=== PATIENT | male | born 1970 | race Caucasian/White ===

== ENCOUNTER 2017-06-21 14:44 | Inpatient (IN) ==
[2017-06-21] MEDS ORDERED: *HR* HYDROmorphone 2 MG TABLET PO PRN ×2 (17:28→20:20)
[2017-06-21] MEDS ORDERED: Naloxone 0.4 MG/ML INJ IVP PRN (17:34)
[2017-06-21] MEDS ORDERED: Acetaminophen 325 MG TABLET PO PRN (17:34)
[2017-06-21] MEDS: *HR* HYDROmorphone 4 MG TABLET PO PRN (17:42)
--- NOTE | 2017-06-21 17:43 | Internal Med History&Physical ---
Date of Encounter: 06/21/17 Time of Encounter: 17:39 Assessment and Plan (1) Sepsis Current visit: Yes Status: Acute Sepsis secondary to right lower extremity cellulitis, possible abscess, possible prepatellar bursitis Unable to determine the extension and depth of infection at the moment Order a CT of the leg stat Orthopedic surgery consult, infectious diseases consult Start daptomycin and cefepime, the patient had an allergic reaction to vancomycin Blood cultures, Dilaudid for pain, IV fluids NPO if surgical procedure as indicated after reviewing the report of the CT scan Omeprazole for GI prophylaxis and subcutaneous tenderness heparin for DVT prophylaxis. The patient will be admitted as inpatient, expected to stay more than 2 midnights. Full code. Time spent on this admission 40 minutes Qualifiers: Sepsis type: sepsis due to unspecified organism Qualified Code(s): A41.9 - Sepsis, unspecified organism (2) Leukocytosis Current visit: Yes Status: Acute Qualifiers: Leukocytosis type: unspecified Qualified Code(s): D72.829 - Elevated white blood cell count, unspecified (3) History of nephrolithiasis Current visit: Yes Status: Acute (4) Accelerated hypertension Current visit: Yes Status: Acute Likely secondary to pain (5) Cellulitis Current visit: No Status: Acute Qualifiers: Site of cellulitis: extremity Site of cellulitis of extremity: lower extremity Laterality: right Qualified Code(s): L03.115 - Cellulitis of right lower limb (6) Tobacco abuse Current visit: Yes Status: Acute Nicotine patch Internal Medicine - H&P: HPI Chief complaint: severe right leg infection Admitted From: Emergency Dept History of present illness: Mr. Braxton is a 47 year old male W(ITH a past medical history of nephrolithiasis, overdoses although he denies it, who was transferred from [place] due to severe right lower extremity pain. Apparently on Monday he fell chasing his dog, scratched his knee and on Monday his leg turned extremely tender, erythematous to the point he was barely able to move it. Today his white blood cell count is 25,000 platelets 447 glucose 110 complaining of 10 out of 10 pain, no imaging has been done in the ER. Patient was given a dose of vancomycin and apparently he had a reaction when he was complaining of burning. He has multiple allergies. According to the nurse he is blood pressure was 199/110 in the ambulance, heart rate was 94. The patient is in excruciating pain of the moment, the right knee appears very tender, erythematous there is possibly underneath, erythema is extending up to the proximal thigh and way below the knee. Has been having chills at home, non- quantified fevers. Past Med Surg Social Fam HX - Past Medical History Medical history: kidney stones, other (Chronic back pain, nephrolithiasis, prior overdoses according to the ER notes from [place]) Psychiatric history: no psych history - Past Surgical History Surgical History: other (Lithotripsies, right upper extremity surgeries) - Social History Smoking Status: Never smoker Smokeless Tobacco Status: Yes (Chews tobacco) Alcohol use: rarely Drug use: none (Denies drug use but has been positive in the past for amphetamines and according to the ER notes from [place] he has a few visits for overdoses) - Family History Mother Hx Family Cardiac Disorders: Yes Hx Family Neuromuscular Disorders: Yes Father Hx Family Cardiac Disorders: Yes - Additional Family History Additional family history: Father with CABG mother with CVA, also heart disease Internal Medicine - H&P: Meds Unable To Obtain [Unable to Obtain] 07/11/16 [History] 3 Allergy/AdvReac Type Severity Reaction Status Date / Time amitriptyline Allergy See Verified 07/11/16 19:11 Comments hydrocodone [From Vicodin] Allergy See Verified 07/11/16 19:11 Comments ibuprofen Allergy See Verified 07/11/16 19:11 Comments meloxicam Allergy Nausea Verified 07/11/16 19:11 tiagabine [From Gabitril] Allergy See Verified 07/11/16 19:11 Comments vancomycin Allergy Rash Verified 06/21/17 15:55 morphine [From Avinza] AdvReac Intermediate See Verified 07/11/16 19:11 Comments All Systems PM: A 10-system review of systems was performed and is negative for pertinent findings except as documented above in the HPI. Review of systems: chills, no cp or sob, other systems out of the 10 reviewed were negative - Constitutional Vitals: Temp Pulse Resp BP Pulse Ox 98.9 F 95 16 145/89 97 06/21/17 17:03 06/21/17 17:03 06/21/17 17:03 06/21/17 17:03 06/21/17 17:03 General appearance: Present: A&O X 3 - Head Head exam: Present: atraumatic, normocephalic - Eye Eye exam: Present: PERRL, conjuntiva pink, sclera anicteric Pupils: Present: PERRL - Neck Neck exam general surgery: Present: supple, trachea midline. Absent: lymphadenopathy - Respiratory Respiratory exam: Present: CTAB. Absent: accessory muscle use, rales, rhonchi, wheezes - Cardiovascular Cardiovascular exam: Present: RRR, +S1, +S2. Absent: diastolic murmur, gallop, rubs, systolic murmur - GI/Abdominal GI/Abdominal exam: Present: normal bowel sounds, soft, no peritoneal signs. Absent: distended, tenderness - Extremities Exam Extremities exam: Present: warm, radial pulses palpable and symmetrical. Absent : calf tenderness, cyanotic, pedal edema - Neurological Exam Neurological exam: Present: CN II-XII intact, oriented X3, no focal deficits. Absent: pronater drift, facial droop, speech deficit - Skin Skin exam: Present: dry, intact Additional comments: Severe swelling and erythema over the right knee with a large area the turned yellowish, possible abscesses underneath, still able to move his extremity/foot no evidence of compartmental syndrome, erythema extending to from the upper thigh down to the ankle
[2017-06-21] MEDS ORDERED: DAPTOmycin 750 MG in 0.9 % Sodium Chloride 100 ML IVPB SCH (18:00)
[2017-06-21] MEDS ORDERED: Cefepime HCl 1,000 MG in D5% in Water (Mini-Bag+) 100 ML IVPB SCH (18:00)
[2017-06-21 19:03] LABS: INR 1.2; Prothrombin Time 13.2 Seconds (9.4-12.1)
--- NOTE | 2017-06-21 19:04 | Orthopedic Consult Note ---
Date of Encounter: 06/21/17 Time of Encounter: 19:01 Assessment and Plan (1) Cellulitis Current Visit: No Status: Acute Extensive subcutaneous abscess and cellulitis concerning for developing necrotizing infection. My recommendation was for emergent operative debridement and removal of devitalized tissue. I did discuss my concerns with the hospitalist who will consult the infectious disease specialists to assist in antibiotic management. The risks discussed included but were not limited to stiffness, bleeding, infection, blood clots, damage to neurovascular structures , tendons, ligaments, and bone. Also discussed was the risk of continued symptoms and possible need for further procedures. I did discuss the anesthesia risks including stroke, heart attack, and . I did discuss with the patient that this may require more than one debridement and he is at risk of loss of life and limb. I explained this to the patient in simple terms and he wished to proceed and consent was obtained. Qualifiers: Site of cellulitis: extremity Site of cellulitis of extremity: lower extremity Laterality: right Qualified Code(s): L03.115 - Cellulitis of right lower limb History of Present Illness HPI: Mr. Braxton is a 47 year old male who was directly admitted to the hospitalist service from [place] emergency department this evening. The patient scraped his right knee on the ground on Monday and developed an infection over the weekend that worsened today. He was found to have cellulitis of the right knee and transferred in directly admitted to our hospitalist service. I was consulted to assist in the evaluation and management of the patient. In my evaluation and patient corroborates the above history. He said the pain started to get intense this morning. There is no associated numbness or tingling. The pain begins along the lateral thigh and goes to the mid tibial region. He describes the pain as burning. There is significant pain with any movement of the right leg. No other modifying factors. No other associated signs or symptoms. Past Med Surg Social Fam HX - Past Medical History Medical history: kidney stones, other (Chronic back pain, nephrolithiasis, prior overdoses according to the ER notes from [place]) Psychiatric history: no psych history - Past Surgical History Surgical History: other (Lithotripsies, right upper extremity surgeries) - Social History Smoking Status: Never smoker Smokeless Tobacco Status: Yes (Chews tobacco) Alcohol use: rarely Drug use: none (Denies drug use but has been positive in the past for amphetamines and according to the ER notes from [place] he has a few visits for overdoses) - Family History Mother Hx Family Cardiac Disorders: Yes Hx Family Neuromuscular Disorders: Yes Father Hx Family Cardiac Disorders: Yes Medications and Allergies Unable To Obtain [Unable to Obtain] 07/11/16 [History] 3 Allergy/AdvReac Type Severity Reaction Status Date / Time amitriptyline Allergy See Verified 07/11/16 19:11 Comments hydrocodone [From Vicodin] Allergy See Verified 07/11/16 19:11 Comments ibuprofen Allergy See Verified 07/11/16 19:11 Comments meloxicam Allergy Nausea Verified 07/11/16 19:11 tiagabine [From Gabitril] Allergy See Verified 07/11/16 19:11 Comments vancomycin Allergy Rash Verified 06/21/17 15:55 morphine [From Avinza] AdvReac Intermediate See Verified 07/11/16 19:11 Comments All Systems Reviewed: The remainder of the systems were reviewed and are negative Physical Exam - Constitutional Vitals: Temp Pulse Resp BP Pulse Ox 98.9 F 95 16 145/89 97 06/21/17 17:03 06/21/17 17:03 06/21/17 17:03 06/21/17 17:03 06/21/17 17:03 CONSTITUTIONAL -Vitals reviewed -The patient is well developed, well nourished, well groomed PSYCHIATRIC -Fully alert and oriented -Pleasant mood RIGHT UPPER EXTREMITY Inspection shows significant swelling to the thigh and anterior knee region with extensive cellulitic change from the mid thigh to the mid proximal medial tibial region with palpable fluctuance. No crepitance is noted. The thigh and leg compartments are soft and compressible. Significant tenderness particularly over the fluctuant areas. No significant induration. Along the anterior proximal cueto region there is an area of blistering noted about 6 cm in diameter where it appears to be coming to a head. He keeps the leg flexed at 90 degrees and any movement of the knee does cause significant pain along the fluctuant areas. He can grossly flex and extend the ankle and toes and the foot is sensate and well-perfused. Diagnostic Imaging: I did personally review and interpret the CT scan of the right lower extremity demonstrates an extensive subcutaneous abscess from the lateral thigh going to the anterior knee and proximal cueto region. No areas identified. Results - Labs Labs: All other labs normal. Consult Discharge Plan - Plan Referrals: NONE,PCP [Primary Care Provider] -
--- NOTE | 2017-06-21 19:07 | Anesthesia Evaluation PreOp ---
Date of Encounter: 06/21/17 Time of Encounter: 19:05 - Past History Planned Operation: I and D Right leg Cardiac History: HTN Pulmonary History: Smoker MILK HAULER History: Other (chronic back pain) Other Medical History: Renal (stones), Other (sepsis,prior hx of drug overdose) Anesthesia History: No Prior Anesthetic Complications, Past Anesthesia (RUE operation lithotripsy) Alcohol Use: rarely Drug use: none (Denies drug use but has been positive in the past for amphetamines and according to the ER notes from [place] he has a few visits for overdoses) Medications and Allergies Unable To Obtain [Unable to Obtain] 07/11/16 [History] 3 Allergy/AdvReac Type Severity Reaction Status Date / Time amitriptyline Allergy See Verified 07/11/16 19:11 Comments hydrocodone [From Vicodin] Allergy See Verified 07/11/16 19:11 Comments ibuprofen Allergy See Verified 07/11/16 19:11 Comments meloxicam Allergy Nausea Verified 07/11/16 19:11 tiagabine [From Gabitril] Allergy See Verified 07/11/16 19:11 Comments vancomycin Allergy Rash Verified 06/21/17 15:55 morphine [From Avinza] AdvReac Intermediate See Verified 07/11/16 19:11 Comments - Meds/Allergy Pre-op Review Medications Reviewed: Yes Allergies Reviewed: Yes Beta Blockers on Current Med List: No Anesthesia Results - Labs Laboratory Tests 06/21/17 06/21/17 06/21/17 13:05 13:05 18:42 WBC 25.0 H Hgb 14.4 Hct 42.3 Plt Count 447 H PT 13.2 H INR 1.2 Sodium 136 Potassium 3.8 Chloride 99 Carbon Dioxide 29 BUN 10 Creatinine 0.67 L Glucose 110 H Anesthesia Exam Vital Signs/O2 Sat, Most Current Temp Pulse Resp BP Pulse Ox 98.9 F 95 16 145/89 97 06/21/17 17:03 06/21/17 17:03 06/21/17 17:03 06/21/17 17:03 06/21/17 17:03 Weight: 72kg - HEENT Pupil (Motor): Pupils equal Mallampati: III Teeth: Poor dentition Oral Opening: Greater than 3 - MILK HAULER LOC: Oriented MILK HAULER Motor: Normal RUE, Normal LUE, Normal RLE, Normal LLE, Normal Face MILK HAULER Sensory: Normal: RUE, LUE, RLE, LLE, Face - Cardiac Rhythm: Regular - Pulmonary Breath Sounds: bilateral Clear Respiratory Effort: Symmetrical Anesthesia Assess/Plan ASA Score: 3, E Modified Cortney Scale for Level of Consciousness: Cooperative, oriented, and tranquil Anesthetic Plan: General Monitoring Plan: Standard Monitors Recovery Plan: PACU
[2017-06-21] MEDS ORDERED: Bupivacaine-MPF 0.25% 10 ML VIAL ONE (19:11)
[2017-06-21] MEDS ORDERED: Lidocaine -MPF 2% 2 ML VIAL ONE (19:13)
[2017-06-21] MEDS ORDERED: *HR* FentaNYL (PF) 100 MCG/2 ML VIAL ONE ×2 (19:13→19:54)
[2017-06-21] MEDS ORDERED: *HR* Propofol 200 MG/20 ML VIAL IVP ONE (19:13)
[2017-06-21] MEDS ORDERED: *HR* Midazolam HCl 2 MG/2 ML VIAL ONE (19:13)
[2017-06-21] MEDS ORDERED: Acetaminophen IV 1,000 MG/100 ML INFUS..BTL ONE (19:18)
[2017-06-21] MEDS ORDERED: Famotidine 20 MG/2 ML VIAL ONE (19:18)
[2017-06-21] MEDS ORDERED: Metoclopramide 10 MG/2 ML VIAL ONE (19:18)
[2017-06-21] MEDS ORDERED: Pregabalin 75 MG CAPSULE ONE (19:24)
[2017-06-21] MEDS ORDERED: Ondansetron 4 MG/2 ML VIAL ONE (20:14)
[2017-06-21] MEDS ORDERED: Dexamethasone 4 MG/ML VIAL ONE (20:14)
[2017-06-21] MEDS ORDERED: *HR* OxyCODONE Immed Rel 5 MG TABLET PO PRN (20:20)
[2017-06-21] MEDS ORDERED: *HR* Promethazine 25 MG/ML VIAL IVP PRN (20:22)
[2017-06-21] MEDS ORDERED: *HR* Labetalol 20 MG/4 ML SYRINGE IVP PRN (20:22)
[2017-06-21] MEDS: MORPHINE SUL Oral CONC 10 MG/0.5 ML ORAL.SYG SL PRN ×2 (20:40→20:50)
[2017-06-21] MEDS ORDERED: cloNIDine HCl 0.1 MG TABLET ONE (20:44)
--- NOTE | 2017-06-21 20:52 | Orthopedic Operative Note ---
Date of procedure: 06/21/17 Procedure: OPERATIVE REPORT DATE OF PROCEDURE: 06/21/2017 SURGEON: Bubba Silva MD FAMILY DEVELOPMENT EXTENSION SPECIALIST(S): There were no assistants PREOPERATIVE DIAGNOSIS: Right lower extremity cellulitis with extensive subcutaneous abscess to the lateral thigh and anterior knee and proximal tib- fib region POSTOPERATIVE DIAGNOSIS: Same PROCEDURE: Incision, drainage, irrigation, debridement of the right lower extremity ANESTHESIA: Gen. anesthesia PREOPERATIVE ANTIBIOTICS: Daptomycin and Zosyn ESTIMATED BLOOD LOSS: 50 milliliters TOURNIQUET TIME: 13 minutes at 300 mmHg SPECIMENS: Abscess slop cultures sent for aerobic and anaerobic PREOPERATIVE NOTE AND INDICATIONS: This patient was a 47-year-old male transferred from [facility] and directly admitted to the hospitalist service. He had right lower extremity cellulitis. I was consulted to assist in the evaluation and management of this patient. I had a high suspicion for a necrotizing soft tissue infection and recommended an emergent trip to the operating room for incision, drainage, irrigation, and debridement The surgical plan was discussed with the patient. The risks, benefits, alternatives, and potential complications of this procedure were discussed with the patient including injury to veins, arteries, nerves, tendons, ligaments, and bone. Also discussed were the risks of infection, bleeding, pain, blood clots, the possible need for a blood transfusion, the possible need for further procedures, heart attack, stroke, and . Additional risks include need for further debridements, loss of life, loss of limb. All of this was explained in simple terms, and the patient verbalized understanding and wished to proceed. Consent was given to proceed with surgery. PROCEDURE: The patient was seen in the preoperative holding area where the identify and the consent were confirmed. The right lower extremity was marked. Final questions were answered. The patient was brought back to the operating room and placed supine on the operating room table. A huddle was performed with the patient and all vital surgical team members confirming patient identity, the correct procedure, and the correct operative site. Gen. anesthesia was administered. The right lower extremity was prepped and draped in the usual sterile fashion. A surgical time out was performed immediately preceding the incision with all personnel in the operating room to confirm patient identity, the correct operative site and extremity, correct radiographic studies, availability of appropriate surgical equipment, and agreement on the planned procedure. A sterile tourniquet was applied and inflated without exsanguination. A ~10 cm direct lateral incision was made on the thigh which immediately decompressed the very large abscess which drained copious amounts of grossly purulent material which was swabbed for culture. A second ~10 cm incision was made directly anterior at the knee and proceeded to decompress the abscess further in this area. Subcutaneously the 2 incisions communicated through the abscess. The abscess did spread into the proximal tib-fib region near the tibial tubercle area. A total of 6 L of saline were washed through the subcutaneous space. There did not appear to be any spread through the fascial planes at any portion of the abscess. There was no grossly necrotic fat and the fascia appeared healthy. I did make a small incision in the fascia through the lateral incision to access the anterior compartment and there was no further purulent material and the underlying muscle was healthy in appearance and nicely contractile. The tourniquet was deflated. Discrete bleeders were electrocauterized. Thre loose stitches were placed in each incision using 2-0 nylon. The space was packed open with one-inch iodoform gauzes packing. 4 x 4' s and ABDs were applied over the wounds and these were covered with an Brandin wrap. The instrument, sponge, and needle counts were correct after wound closure. POST OPERATIVE PLAN: Weight Bearing: Bedrest for the meantime DVT Prophylaxis: Heparin per the hospitalist Activity: Avoid aggressive activities at this point Wound Care: Will perform daily dressing changes Pain Control: Per the hospitalist Other: We will monitor the patient's labs and perform daily dressing changes. He may require a second look I&D depending on his clinical picture and the next 24-48 hours. Was there an patent legal assistant present: No Estimated blood loss (cc): 50
[2017-06-21] MEDS ORDERED: Clindamycin 900 MG/50 ML 900 MG/50 ML IV.SOLN IVPB ONE (21:08)
[2017-06-21] MEDS: Piperacillin/Tazobactam 3.375 GM in 0.9 % Sodium Chloride Mini Bag 100 ML IVPB SCH (21:51)
[2017-06-21] MEDS: *HR* Heparin 5,000 UNIT/ML VIAL SQ SCH (21:54)
[2017-06-21] MEDS: Nicotine 14 MG PATCH.TD24 TD SCH (21:58)
--- NOTE | 2017-06-21 22:05 | Anesthesia Evaluation Post Op ---
Date of Encounter: 06/21/17 Time of Encounter: 21:25 - Vital Signs Vital Signs: Vital Signs/O2 Sat/Glucose, Most Current Temp Pulse Resp BP Pulse Ox 06/21/17 21:41 98.3 F 100 18 99/59 96 06/21/17 21:18 98.7 F 93 22 137/87 99 06/21/17 21:07 98.7 F 93 22 104/94 99 06/21/17 20:57 98.2 F 93 22 128/98 99 06/21/17 20:47 98.2 F 98 22 124/92 97 06/21/17 20:37 98.2 F 110 22 131/88 99 - Lungs Lungs: Clear Ascult./Percussion - Airway Airway: Non-obstructed - Cardiovascular Regular Rate - Mental Status Mental Status: Alert & Oriented, Answers Appropriately - Pain Pain Scale: 7 Pain Scale used: Numeric (1 - 10) - Nausea Vomiting Nausea Vomiting: Not Present - Hydration Hydration: Tolerates oral liquids, Has not voided - Discharge PostOp Status: Transfer Patient to floor Anes Supervising Prov Stmt: Pt seen/evaluated, VSS and pt has met criteria for discharge to floor. - MD Kwadwo
[2017-06-22] MEDS ORDERED: Piperacillin/Tazobactam 3.375 GM in 0.9 % Sodium Chloride Mini Bag 100 ML IVPB SCH
[2017-06-22] MEDS ORDERED: Clindamycin 900 MG/50 ML 900 MG/50 ML IV.SOLN IVPB SCH
[2017-06-22] MEDS: 0.9 % Sodium Chloride 1,000 ML IVC SCH ×2 (02:50→09:12)
[2017-06-22] MEDS: *HR* HYDROmorphone 4 MG TABLET PO PRN ×6 (02:55→20:57)
[2017-06-22] MEDS: Piperacillin/Tazobactam 3.375 GM in 0.9 % Sodium Chloride Mini Bag 100 ML IVPB SCH ×3 (03:40→20:04)
[2017-06-22 03:47] LABS: Basophils # 0.1 K/mcL (0.0-0.2); Basophils % 0.4 %; Hematocrit 35.7 % (37.5-50.1); Hemoglobin 11.7 g/dL (12.9-16.9); Immature Granulocytes % 2.9 % (0-4); Lymphocytes % 3.9 %; Mean Corpuscular HGB Conc 32.8 g/dL (31.6-35.5); Mean Corpuscular Hemoglobin 30.3 pg (28.0-33.3); Mean Corpuscular Volume 92.5 fL (83.0-100.0); Mean Platelet Volume 9.6 fL (9.4-12.4); Monocytes # 0.9 K/mcL (0.0-1.3); Monocytes % 3.4 %; Neutrophils # 23.4 K/mcL (1.6-8.9); Platelet Count 408 K/mcL (140-400); Red Blood Count 3.86 M/mcL (4.19-5.50); Red Cell Distribution Width 12.8 % (11.5-14.5); Segmented Neutrophils % 89.4 %
[2017-06-22 04:03] LABS: BUN/Creatinine Ratio 12 (6-26); Blood Urea Nitrogen 9 mg/dL (6-20); Calcium 7.9 mg/dL (8.6-10.3); Carbon Dioxide 22 mEq/L (23-29); Chloride 105 mEq/L (98-107); Glucose 185 mg/dL (70-105); Osmolality,Calculated 285 (280-300); Sodium 136 mEq/L (136-145); eGFR For African Americans > 60 (> 60); eGFR For Non-African Americans > 60 (> 60)
[2017-06-22 04:13] LABS: Platelet Estimate Normal (Normal)
[2017-06-22 04:14] LABS: Anisocytosis 1+ (Not Present); Macrocytosis Present (Not Present)
[2017-06-22] MEDS: Clindamycin 900 MG/50 ML 900 MG/50 ML IV.SOLN IVPB SCH ×2 (05:47→14:11)
[2017-06-22] MEDS: *HR* Heparin 5,000 UNIT/ML VIAL SQ SCH ×2 (06:35→17:48)
--- NOTE | 2017-06-22 07:24 | Orthopedics Progress Note ---
Date of Encounter: 06/22/17 Time of Encounter: 06:30 - Assessment and Plan (1) Cellulitis Current Visit: No Status: Inactive Qualifiers: Site of cellulitis: extremity Site of cellulitis of extremity: lower extremity Laterality: right Qualified Code(s): L03.115 - Cellulitis of right lower limb Subjective Interval history: S: Resting in bed. Was asleep. Easily arousable Improved pain to the right lower extremity. O: Afebrile/VSS Right lower extremity cellulitis has improved significantly Improved swelling to the right lower extremity Wounds are evaluated without drainage, packing is pulled Improved motion about the knee Thigh and leg compartments are soft He can dorsiflex and plantarflex ankle and toes The foot is sensate and well-perfused with a bounding dorsalis pedis pulse A: Post incision, drainage, irrigation, and debridement of the right lower extremity Improved significantly overnight P: Given the concern that this was a necrotizing soft tissue infection my recommendation is to continue clindamycin, Zosyn, and daptomycin (given the allergy to vancomycin) until cultures delineate. We will follow clinically very closely. At this point since he is improving significantly rather quickly I do not recommend any further debridements at this time. Objective Vital signs: Vital Signs Temp Pulse Resp BP Pulse Ox 06/22/17 07:04 98.0 F 103 16 107/68 94 06/22/17 04:03 98.3 F 91 17 131/84 99 06/22/17 00:56 98.3 F 95 18 106/74 95 06/22/17 00:07 98.1 F 106 18 123/75 95 06/21/17 22:58 99.1 F 104 18 121/79 94 06/21/17 22:15 97.6 F 97 19 97/53 97 06/21/17 21:41 98.3 F 100 18 99/59 96 06/21/17 21:18 98.7 F 93 22 137/87 99 06/21/17 21:07 98.7 F 93 22 104/94 99 06/21/17 20:57 98.2 F 93 22 128/98 99 06/21/17 20:47 98.2 F 98 22 124/92 97 06/21/17 20:37 98.2 F 110 22 131/88 99 06/21/17 17:03 98.9 F 95 16 145/89 97 Intake and Output 03/07/18 03/07/18 03/08/18 15:59 23:59 07:59 Output Total 50 / 50 2009 Balance -50 / -50 -2009 Output: Urine 2009 Estimated Blood Loss 50 / 50 Other: Weight 72.3 kg 79 kg Patient Weight 06/22/17 23:59 Weight 79 kg - Labs CBC & BMP: 06/22/17 00:46 06/22/17 00:46 Labs: Abnormal lab results WBC 26.2 K/mcL (4.3-11.1) H 06/22/17 00:46 RBC 3.86 M/mcL (4.19-5.50) L 06/22/17 00:46 Hgb 11.7 g/dL (12.9-16.9) L D 06/22/17 00:46 Hct 35.7 % (37.5-50.1) L 06/22/17 00:46 Plt Count 408 K/mcL (140-400) H 06/22/17 00:46 Neutrophils # 23.4 K/mcL (1.6-8.9) H 06/22/17 00:46 Anisocytosis 1+ (Not Present) A 06/22/17 00:46 Macrocytosis Present (Not Present) A 06/22/17 00:46 ESR 100 mm/hr (0-10) H 06/22/17 00:46 PT 13.2 Seconds (9.4-12.1) H 06/21/17 18:42 Carbon Dioxide 22 mEq/L (23-29) L 06/22/17 00:46 Glucose 185 mg/dL (70-105) H 06/22/17 00:46 Calcium 7.9 mg/dL (8.6-10.3) L 06/22/17 00:46 C-Reactive Protein 166 mg/L (Less than 10) H 06/22/17 00:46 Consult Discharge Plan - Plan Referrals: NONE,PCP [Primary Care Provider] -
[2017-06-22] MEDS: Nicotine 14 MG PATCH.TD24 TD SCH (09:05)
[2017-06-22] MEDS ORDERED: 0.9 % Sodium Chloride 1,000 ML ONE (09:08)
--- NOTE | 2017-06-22 09:50 | Infectious Disease Consult ---
Date of Encounter: 06/22/17 Time of Encounter: 09:15 Assessment and Plan (1) Sepsis Status: Acute Assessment and plan: Sepsis 2 SIRS criteria present: Tachycardia and leukocytosis Causative organism currently unknown Due to extensive lower extremity abscess and cellulitis Cultures taken in the OR Qualifiers: Sepsis type: sepsis due to unspecified organism Qualified Code(s): A41.9 - Sepsis, unspecified organism (2) Cellulitis and abscess of right leg Status: Acute Assessment and plan: Extensive abscess and right lower extremities with overlying cellulitis Taken for incision and drainage with irrigation and debridement on 06/21/[address] Silva No necrotic tissue seen during surgery Started as abrasion on his knee on 06/16/17 Highly elevated ESR/CRP of 100/246 LRINEC 6 Patient had burning sensation inside of infusion with vancomycin Currently on daptomycin, Zosyn, and clindamycin Load cultures drawn, will wait for results Recommend continuing daptomycin, Zosyn, clindamycin until cultures result (3) Hematuria Status: Acute Assessment and plan: Patient reports having hematuria all day Monday He reports taking cephalexin for 1 day with resolution of symptoms Denies having dysuria, flank pain, or frequency Consider urinalysis Qualifiers: Hematuria type: gross Qualified Code(s): R31.0 - Gross hematuria (4) Accelerated hypertension Status: Acute Assessment and plan: Continue management per primary team Suspect due to significant pain (5) History of nephrolithiasis Status: Acute Infectious Disease HPI - Data of Consult Patient: new to practice Consult date: 06/22/17 Requesting Physician: Gael Dawn MD Primary Care Provider: PCP NONE - Consult Narrative Reason for consult: Right leg cellulitis and abscess History of present illness: Mr. Braxton is a 47 year old male with past medical history of nephrolithiasis presented to the [place] ER on 06/21/17 due to severe pain, erythema, and swelling of his right leg. ID was consulted at admission to help with management of his soft tissue infection. Patient had been playing with his friend's dof on Monday when he fell and scraped his knee. Over the next couple days this worsened. He states that after a bath on Monday he noticed that there was more erythema and some swelling. The following day he felt tired and slept the entire day. On Monday he woke up and felt excruciating pain in his right leg for which he tried to take some Aleve with no benefit. During this time, he reports that it was difficult to move his leg and could not handle it being touched at all. On Monday, the pain was too severe and he decided to go to the hospital. He does not describe having other symptoms and denies having felt a fever, chills, diaphoresis, nausea, shortness of breath or abdominal pain. He states that he did develop some hematuria on Monday for which he took a days worth of Keflex (that he had around the house) and this seemed to improve his symptoms (he had no other urinary symptoms). Upon presentation to the [facility] ER, he had a temperature of 98.6, mild tachycardia of 96, but leukocytosis of 26.2 (neutrophilic predominance). An initial ESR and CRP were 100 and 262, respectively. A CT of his lower extremity showed extensive infection/inflammation with extensive subcutaneous fluid, there was no discrete fluid collection or air seen. Orthopedic surgery was consulted and was concerned for a possible necrotising process and took him to the OR. He underwent an I&D, irrigation, and debridement of the right lower extremity. A very large abscess was drained of purulent material (thigh-ti/fib region). No grossly necrotic fat or fascia was seen. The patient had received IVF in the ER and he had been started on Vancomycin and Cefepime. Unfortunately, he developed a burning sensation in his arm at the location of the infusion as a result of the Vancomycin. He was then switched to Daptomycin and Zosyn. Clindamycin was also started. As of today the patient feels much improved though he is still having some pain in his right leg, but now it seems to be focused around the area where surgery had been performed. He denies having felt any fevers, chills, or diaphoresis. He denies anorexia, nausea, abdominal pain, dyspnea, or chest pain. He denies diarrhea and constipation. CC: Gael Dawn MD Past Med Surg Social Fam HX - Past Medical History Medical history: kidney stones, other (Chronic back pain, nephrolithiasis, prior overdoses according to the ER notes from [facility]) Psychiatric history: no psych history - Past Surgical History Surgical History: other (Lithotripsies, right upper extremity surgeries) - Social History Smoking Status: Never smoker Smokeless Tobacco Status: Yes (Chews tobacco) Alcohol use: rarely Drug use: none (Denies drug use but has been positive in the past for amphetamines and according to the ER notes from [facility] he has a few visits for overdoses) - Family History Mother Hx Family Cardiac Disorders: Yes Hx Family Neuromuscular Disorders: Yes Father Hx Family Cardiac Disorders: Yes Infectious Disease-CN:Meds No Known Home Drugs 06/21/17 [History] 3 Allergy/AdvReac Type Severity Reaction Status Date / Time amitriptyline Allergy See Verified 07/11/16 19:11 Comments hydrocodone [From Vicodin] Allergy See Verified 07/11/16 19:11 Comments ibuprofen Allergy See Verified 07/11/16 19:11 Comments meloxicam Allergy Nausea Verified 07/11/16 19:11 tiagabine [From Gabitril] Allergy See Verified 07/11/16 19:11 Comments vancomycin Allergy Rash Verified 06/21/17 15:55 morphine [From Avinza] AdvReac Intermediate See Verified 07/11/16 19:11 Comments Review of systems: Gen: Denies fever, denies chills, denies diaphoresis, denies weakness, denies fatigue CV: Denies chest pain Resp: Denies dyspnea, denies pleuritic pain, denies coughing, denies changes in phlegm production GI: Denies nausea, denies vomiting, denies abdominal pain, denies constipation, denies diarrhea MSK: denies arthralgia, denies muscle weakness, reports continued pain in right leg Neuro: Denies headache, denies confusion, denies focal weakness, denies numbness , denies tingling Skin: Denies bruising, denies rash : Denies flank pain, denies dysuria, reports hematuria (now resolved) Exam - Constitutional Vitals: Temp Pulse Resp BP Pulse Ox 98.0 F 103 16 107/68 94 06/22/17 07:04 06/22/17 07:04 06/22/17 07:04 06/22/17 07:04 06/22/17 07:04 - Additional findings Additional findings: General: Cooperative, pleasant, no acute distress, alert and oriented 3, answers questions appropriately HEENT: Normocephalic, atraumatic, neck supple, trachea midline, Conjunctiva pink , sclera anicteric, EOMI, PERRL, oral mucosa moist, no orophargeal erythema or exudates Respiratory: No accessory muscle usage, clear to auscultation bilaterally, no wheezes/rhonchi/rales appreciated Cardiovascular: Tachycardia, S1 and S2 present, no murmurs/rubs/gallops/clicks appreciated GI/abdominal: Nondistended, nontender, soft, normal bowel sounds, no peritoneal signs Extremities: Erythema and right lower extremity seen in ankles and upper thigh, dressing in place from mid calf to mid thigh, no erythema or warmth beyond the demarcated area, no tenderness to palpation present, slightly increased warmth in right lower extremity, sensation intact, no pedal edema appreciated, warm, lower extremity pulses palpable and symmetrical Neurological: Alert and oriented 3, no facial droop, no focal deficits Skin: Slightly clammy, intact, normal color Infectious Disease CN: Results - Labs CBC & Chem 7: 06/22/17 00:46 03 00:46 Consult Discharge Plan - Plan Referrals: NONE,PCP [Primary Care Provider] - - Attending Attestation I examined this patient and my medical decision-making was reviewed with the Resident Physician. I agree with the documented findings, disposition and treatment plan as described except to the extent set forth below. Patient is a 47 year old gentleman admitted with cellulitis of the right leg, we are consulted for cellulitis and concern for abscess.~ patient is a 47 year old man with past medical history mentioned below feel and scraped his knee a few days prior to admission, patient started having progressive pain, swelling, erythema without fevers chills or night sweats.~ patient came to the ED for evaluation. Upon presentation to the [facility] ER, he had a temperature of 98.6, mild tachycardia of 96, but leukocytosis of 26.2 ( neutrophilic predominance). An initial ESR and CRP were 100 and 262, respectively. A CT of his lower extremity showed extensive infection/ inflammation with extensive subcutaneous fluid, there was no discrete fluid collection or air seen.~ NO joint effusion noted on CT scan.~ patient was taken to surgery by ortho and underwent I&D of the right lower extremity.~ intra operatively a very large abscess with copious amounts of grossly purulent material that was sent for cultures.~ There did not appear to be any spread through the fascial planes at any portion of the abscess.~ There was no grossly necrotic fat and the fascia appeared healthy.~ patient was started on daptomycin and zosyn.~ We are consulted for further evaluation.~ Currently, patient laying in bed, appears comfortable with no acute distress.~ no chest pain, no shortness of breath, no diarrhea, no urinary symptoms.~ surgical wound wrapped. a/p: 1. sepsis 2. cellulitis with abscess s/p I&D with intra op cultures sent and results pending 3. necrotizing fasciitis~ 4. vancomycin allergies had burning when it was being administered Agree with clindamycin and zosyn~ August d/c daptomycin, start vancomycin again and infuse at a slow rate Await culture results to finalize monitor labs and for drug toxicity duration of treatment depends on the clinical picture.~ Not sure yet if he will need IV antibiotics or if we will consider switching to oral options. appreciate orthos recommendations
--- NOTE | 2017-06-22 10:08 | Internal Med Progress Note ---
Date of Encounter: 06/22/17 Time of Encounter: 10:08 - Subjective Interval history: HPI: Mr. Braxton is a 47 year old male W(ITH a past medical history of nephrolithiasis, overdoses although he denies it, who was transferred from [place] due to severe right lower extremity pain. Apparently on Monday he fell chasing his dog, scratched his knee and on Monday his leg turned extremely tender, erythematous to the point he was barely able to move it. Today his white blood cell count is 25,000 platelets 447 glucose 110 complaining of 10 out of 10 pain, no imaging has been done in the ER. Patient was given a dose of vancomycin and apparently he had a reaction when he was complaining of burning. He has multiple allergies. According to the nurse he is blood pressure was 199/110 in the ambulance, heart rate was 94. The patient is in excruciating pain of the moment, the right knee appears very tender, erythematous there is possibly underneath, erythema is extending up to the proximal thigh and way below the knee. Has been having chills at home, non- quantified fevers. Interval changes: Pain controlled Still very nauseated Afebrile Assessment and Plan (1) Sepsis Extensive lower extremity abscess and cellulitis Intraoperative cultures pending (2) Cellulitis and abscess of right leg Status: Acute Assessment and plan: Extensive abscess and right lower extremities with overlying cellulitis Irrigation and debridement on 06/21/[address] Silva No necrotic tissue seen during surgery Started as abrasion on his knee on 06/16/17 Highly elevated ESR/CRP of 100/246 Currently on daptomycin, Zosyn, and clindamycin Load cultures drawn, will wait for results Recommend continuing daptomycin, Zosyn, clindamycin until cultures result - Constitutional Vitals: Temp Pulse Resp BP Pulse Ox 98.0 F 103 16 107/68 94 06/22/17 07:04 06/22/17 07:04 06/22/17 07:04 06/22/17 07:04 06/22/17 09:53 General appearance: Present: A&O X 3 - Head Head exam: Present: atraumatic, normocephalic - Eye Eye exam: Present: PERRL, conjuntiva pink, sclera anicteric Pupils: Present: PERRL - Neck Neck exam general surgery: Present: supple, trachea midline. Absent: lymphadenopathy - Respiratory Respiratory exam: Present: CTAB. Absent: accessory muscle use, rales, rhonchi, wheezes - Cardiovascular Cardiovascular exam: Present: RRR, +S1, +S2. Absent: diastolic murmur, gallop, rubs, systolic murmur - GI/Abdominal GI/Abdominal exam: Present: normal bowel sounds, soft, no peritoneal signs. Absent: distended, tenderness - Extremities Exam Extremities exam: Present: warm, radial pulses palpable and symmetrical. Absent : calf tenderness, cyanotic, pedal edema - Neurological Exam Neurological exam: Present: CN II-XII intact, oriented X3, no focal deficits. Absent: pronater drift, facial droop, speech deficit - Skin Skin exam: Present: dry, intact Internal Medicine: Result - Labs CBC & Chem 7: 06/22/17 00:46 06/22/17 00:46 Labs: Short CBC 06/22/17 Range/Units 00:46 WBC 26.2 H (4.3-11.1) K/mcL Hgb 11.7 L D (12.9-16.9) g/dL Hct 35.7 L (37.5-50.1) % Plt Count 408 H (140-400) K/mcL Neutrophils # 23.4 H (1.6-8.9) K/mcL BMP 06/22/17 00:46 Sodium 136 Potassium 4.0 Chloride 105 Carbon Dioxide 22 L BUN 9 Creatinine 0.73 Glucose 185 H Calcium 7.9 L - ABG Interpretation ABG results: PT/INR, D-dimer PT 13.2 Seconds (9.4-12.1) H 06/21/17 18:42 - Impressions Impressions Lower Extremity CT 06/21/17 17:51 IMPRESSION: Diffuse infection of the right lower extremity beginning at the level of the distal thigh extending to the level of the mid tibia/fibula. D/ / 06/21/2017 19:10:06 David Rodriguez MD / mary Interpreting Provider: David Rodriguez MD Consult Discharge Plan - Plan Referrals: NONE,PCP [Primary Care Provider] -
--- NOTE | 2017-06-22 15:50 | Orthopedics Progress Note ---
Date of Encounter: 06/22/17 Time of Encounter: 15:47 - Assessment and Plan (1) Cellulitis Current Visit: No Status: Inactive Qualifiers: Site of cellulitis: extremity Site of cellulitis of extremity: lower extremity Laterality: right Qualified Code(s): L03.115 - Cellulitis of right lower limb Subjective Interval history: S: Resting in bed. No new complaints Pain to the right lower extremity as expected, but with improvement even when compared to this morning. O: Afebrile/VSS Intensity of cellulitis has improved Improved swelling to the right lower extremity Wounds are evaluated with minimal bloody drainage No purulence Improved motion about the knee Thigh and leg compartments are soft He can dorsiflex and plantarflex ankle and toes The foot is sensate and well-perfused with a bounding dorsalis pedis pulse Cultures are pending A: Post incision, drainage, irrigation, and debridement of the right lower extremity doing well P: Follow culture results Until then, continue clindamycin, daptomycin, and zosyn I will continue BID dressing changes personally Labs tomorrow (ESR, CRP, CBC) No plans on further debridement at this point as he continues to improve Objective Vital signs: Vital Signs Temp Pulse Resp BP Pulse Ox 06/22/17 11:38 98.1 F 95 16 120/78 99 06/22/17 09:53 94 06/22/17 07:04 98.0 F 103 16 107/68 94 06/22/17 04:03 98.3 F 91 17 131/84 99 06/22/17 00:56 98.3 F 95 18 106/74 95 06/22/17 00:07 98.1 F 106 18 123/75 95 06/21/17 22:58 99.1 F 104 18 121/79 94 06/21/17 22:15 97.6 F 97 19 97/53 97 06/21/17 21:41 98.3 F 100 18 99/59 96 06/21/17 21:18 98.7 F 93 22 137/87 99 06/21/17 21:07 98.7 F 93 22 104/94 99 06/21/17 20:57 98.2 F 93 22 128/98 99 06/21/17 20:47 98.2 F 98 22 124/92 97 06/21/17 20:37 98.2 F 110 22 131/88 99 06/21/17 17:03 98.9 F 95 16 145/89 97 Intake and Output 06/21/17 06/22/17 06/22/17 23:59 07:59 15:59 Intake Total 100 / 100 1650 / 1650 Output Total 50 / 50 2009 1300 / 1300 Balance -50 / -50 -1910 / -1910 350 / 350 Intake: IV Fluids 100 / 100 1050 / 1050 0.9 % Sodium Chloride 1,000 ML 1000 / 1000 @ 150 mls/hr IVC .[id number] [facility] Rx #:[id number] Cleocin Premix 900 MG/50 ML 900 50 / 50 mg In 50 ml @ 50 mls/hr IVPB Q8H [facility] Rx#:[id number] Zosyn 3.375 GM In 0.9 % Sodium 100 / 100 Chloride (Mini-Bag +) 100 ML @ 25 mls/hr IVPB Q8H [facility] Rx#: [id number] Oral 600 / 600 Output: Urine 2009 1300 / 1300 Estimated Blood Loss 50 / 50 Other: Meal Lunch Percent of Meal Consumed 100% Weight 72.3 kg 79 kg Patient Weight 06/22/17 23:59 Weight 79 kg - Labs CBC & BMP: 06/22/17 00:46 06/22/17 00:46 Labs: Abnormal lab results WBC 26.2 K/mcL (4.3-11.1) H 06/22/17 00:46 RBC 3.86 M/mcL (4.19-5.50) L 06/22/17 00:46 Hgb 11.7 g/dL (12.9-16.9) L D 06/22/17 00:46 Hct 35.7 % (37.5-50.1) L 06/22/17 00:46 Plt Count 408 K/mcL (140-400) H 06/22/17 00:46 Neutrophils # 23.4 K/mcL (1.6-8.9) H 06/22/17 00:46 Anisocytosis 1+ (Not Present) A 06/22/17 00:46 Macrocytosis Present (Not Present) A 06/22/17 00:46 ESR 100 mm/hr (0-10) H 06/22/17 00:46 PT 13.2 Seconds (9.4-12.1) H 06/21/17 18:42 Carbon Dioxide 22 mEq/L (23-29) L 06/22/17 00:46 Glucose 185 mg/dL (70-105) H 06/22/17 00:46 Calcium 7.9 mg/dL (8.6-10.3) L 06/22/17 00:46 C-Reactive Protein 166 mg/L (Less than 10) H 06/22/17 00:46 Consult Discharge Plan - Plan Referrals: NONE,PCP [Primary Care Provider] -
[2017-06-23] MEDS: *HR* HYDROmorphone 4 MG TABLET PO PRN ×6 (00:01→20:18)
[2017-06-23] MEDS: Clindamycin 900 MG/50 ML 900 MG/50 ML IV.SOLN IVPB SCH ×4 (00:01→22:09)
[2017-06-23 01:18] LABS: Hemoglobin 10.4 g/dL (12.9-16.9); Red Cell Distribution Width 12.7 % (11.5-14.5)
[2017-06-23 01:19] LABS: Basophils # 0.1 K/mcL (0.0-0.2); Basophils % 0.5 %; Eosinophils # 0.1 K/mcL (0.0-0.6); Eosinophils % 0.2 %; Hematocrit 31.1 % (37.5-50.1); Immature Granulocytes % 5.3 % (0-4); Lymphocytes # 3.3 K/mcL (0.6-4.6); Mean Corpuscular HGB Conc 33.4 g/dL (31.6-35.5); Mean Corpuscular Hemoglobin 30.4 pg (28.0-33.3); Mean Corpuscular Volume 90.9 fL (83.0-100.0); Mean Platelet Volume 9.3 fL (9.4-12.4); Monocytes # 1.6 K/mcL (0.0-1.3); Monocytes % 5.9 %; Platelet Count 397 K/mcL (140-400); Red Blood Count 3.42 M/mcL (4.19-5.50); Segmented Neutrophils % 76.1 %
[2017-06-23 01:24] LABS: Neutrophils # 20.6 K/mcL (1.6-8.9)
[2017-06-23 01:37] LABS: C-Reactive Protein 117 mg/L (Less than 10)
[2017-06-23 01:54] LABS: Toxic Granulation Present (Not Present)
[2017-06-23] MEDS: Piperacillin/Tazobactam 3.375 GM in 0.9 % Sodium Chloride Mini Bag 100 ML IVPB SCH ×3 (03:47→20:15)
[2017-06-23] MEDS: *HR* Heparin 5,000 UNIT/ML VIAL SQ SCH ×2 (06:50→16:18)
[2017-06-23 07:06] LABS: BUN/Creatinine Ratio 17 (6-26); Blood Urea Nitrogen 12 mg/dL (6-20); Calcium 7.6 mg/dL (8.6-10.3); Carbon Dioxide 22 mEq/L (23-29); Chloride 106 mEq/L (98-107); Glucose 104 mg/dL (70-105); Osmolality,Calculated 284 (280-300); Potassium 3.9 mEq/L (3.5-5.1); Sodium 137 mEq/L (136-145); eGFR For African Americans > 60 (> 60); eGFR For Non-African Americans > 60 (> 60)
--- NOTE | 2017-06-23 08:44 | Orthopedics Progress Note ---
Date of Encounter: 06/23/17 Time of Encounter: 07:10 - Assessment and Plan (1) Cellulitis Current Visit: No Status: Inactive Qualifiers: Site of cellulitis: extremity Site of cellulitis of extremity: lower extremity Laterality: right Qualified Code(s): L03.115 - Cellulitis of right lower limb Subjective Interval history: S: Resting in bed. No new complaints Pain to the right lower extremity as expected; about the same as yesterday O: Afebrile/VSS Intensity of cellulitis continues to improve Further improved swelling to the right lower extremity Wounds are evaluated with minimal bloody drainage No purulence Improved motion about the knee Thigh and leg compartments are soft He can dorsiflex and plantarflex ankle and toes The foot is sensate and well-perfused with a bounding dorsalis pedis pulse Cultures growing S. aureus A: Post incision, drainage, irrigation, and debridement of the right lower extremity doing well P: Improving clinically WBC with slight bump, but LRINEC score has improved to < 6. Dramatic improvement of CRP I will continue BID dressing changes personally Continue abx per ID Labs tomorrow (ESR, CRP, CBC) No plans on further debridement at this point as he continues to improve Objective Vital signs: Vital Signs Temp Pulse Resp BP Pulse Ox 06/23/17 07:31 97 06/23/17 07:03 98.5 F 82 16 143/88 97 06/23/17 03:36 97.9 F 80 16 136/79 99 06/22/17 22:55 98.5 F 87 16 127/73 98 06/22/17 19:00 97.7 F 104 16 110/66 98 06/22/17 16:26 98.5 F 99 17 110/68 98 06/22/17 11:38 98.1 F 95 16 120/78 99 06/22/17 09:53 94 Intake and Output 06/22/17 06/23/17 06/23/17 23:59 07:59 15:59 Intake Total 350 / 350 200 / 200 Output Total 1275 / 1275 1300 / 1300 Balance -925 / -925 -1100 / -1100 Intake: IV Fluids 50 / 50 150 / 150 Cleocin Premix 900 MG/50 ML 900 50 / 50 50 / 50 mg In 50 ml @ 50 mls/hr IVPB Q8H [facility] Rx#:[id number] Zosyn 3.375 GM In 0.9 % Sodium 100 / 100 Chloride (Mini-Bag +) 100 ML @ 25 mls/hr IVPB Q8H [facility] Rx#: [id number] Oral 300 / 300 50 / 50 Output: Urine 1275 / 1275 1300 / 1300 Other: Meal Dinner Percent of Meal Consumed 50% Weight 75 kg Patient Weight 06/23/17 23:59 Weight 75 kg - Labs CBC & BMP: 06/23/17 00:59 06/23/17 00:59 Labs: Abnormal lab results WBC 27.1 K/mcL (4.3-11.1) H 06/23/17 00:59 RBC 3.42 M/mcL (4.19-5.50) L 06/23/17 00:59 Hgb 10.4 g/dL (12.9-16.9) L 06/23/17 00:59 Hct 31.1 % (37.5-50.1) L 06/23/17 00:59 MPV 9.3 fL (9.4-12.4) L 06/23/17 00:59 Immature Gran % 5.3 % (0-4) H 06/23/17 00:59 Neutrophils # 20.6 K/mcL (1.6-8.9) H 06/23/17 00:59 Monocytes # 1.6 K/mcL (0.0-1.3) H 18 00:59 Toxic Granulation Present (Not Present) A 06/23/17 00:59 Platelet Estimate Slight increase (Normal) H 06/23/17 00:59 Anisocytosis 1+ (Not Present) A 06/22/17 00:46 Macrocytosis Present (Not Present) A 06/22/17 00:46 ESR 105 mm/hr (0-10) H 06/23/17 00:59 PT 13.2 Seconds (9.4-12.1) H 18 18:42 Carbon Dioxide 22 mEq/L (23-29) L 06/23/17 00:59 Calcium 7.6 mg/dL (8.6-10.3) L 18 00:59 C-Reactive Protein 117 mg/L (Less than 10) H 18 00:59 Consult Discharge Plan - Plan Referrals: NONE,PCP [Primary Care Provider] -
[2017-06-23] MEDS: Nicotine 14 MG PATCH.TD24 TD SCH (09:18)
--- NOTE | 2017-06-23 10:17 | Infectious Disease Progress No ---
Date of Encounter: 06/23/17 Time of Encounter: 10:12 - Assessment and Plan (1) Sepsis Current Visit: Yes Status: Acute The patient had 2 SIRS criteria on admission. Likely secondary to RLE cellulitis and abscess. Improved. WBC remains elevated, but tachycardia has resolved. No blood cultures were drawn. Qualifiers: Sepsis type: sepsis due to unspecified organism Qualified Code(s): A41.9 - Sepsis, unspecified organism (2) Cellulitis and abscess of right leg Current Visit: Yes Status: Acute Location: Right lateral thigh, anterior knee, and proximal tib-fib. Causative organism: S. aureus. Sensitivities are pending. Likely secondary to abrasion sustained during fall. CT scan completed 06/21/17 showed diffuse infection of the right lower extremity beginning at the level of the distal thigh extending to the level of the tib/ fib. ESR 100, CRP 262. CK 40. Ortho consulted and following. Status post incision, drainage, irrigation, and debridement of the RLE 06/21/[address] Silva. Operative note reviewed. Cultures are growing S. aureus. LRINEC score 6 today. Clinically improved per patient. Continue Vancomycin IV. Pharmacy to dose. Goal trough ~15. Continue Zosyn 3.375 grams IV Q8H. Continue Clindamycin 900mg IV Q8H. Duration of treatment depends on the clinical picture. Await cultures to finalize and for susceptibilities and de-escalate if/when able. Monitor renal function and for drug toxicity. (3) Hematuria Current Visit: Yes Status: Resolved Etiology unclear. Resolved per patient. Qualifiers: Hematuria type: gross Qualified Code(s): R31.0 - Gross hematuria (4) Accelerated hypertension Current Visit: Yes Status: Acute Management per the primary team. (5) Tobacco abuse Current Visit: Yes Status: Acute - Subjective Interval history: Patient seen and examined. No acute events noted overnight. Patient states his leg is better this morning. Denies fevers, chills, or rigors. Denies chest pain , shortness of breath, or cough. Denies nausea, vomiting, or diarrhea. Denies urinary complaints, abdominal pain, or appetite changes. States he ate breakfast this morning. Denies N/T. Complains of pain at the RLE surgery site, but reports that the redness and swelling are improved. Denies oral thrush or new skin lesions. Infect Dis PN-Objective Data - Labs CBC & Chem 7: 06/23/17 00:59 06/23/17 00:59 Labs: Laboratory Results - last 24 hr 06/23/17 06/23/17 06/23/17 00:59 00:59 00:59 WBC 27.1 H RBC 3.42 L Hgb 10.4 L Hct 31.1 L MCV 90.9 MCH 30.4 MCHC 33.4 RDW 12.7 Plt Count 397 MPV 9.3 L Immature Gran % 5.3 H Seg Neutrophils % 76.1 Lymphocytes % 12.0 Monocytes % 5.9 Eosinophils % 0.2 Basophils % 0.5 Neutrophils # 20.6 H Lymphocytes # 3.3 Monocytes # 1.6 H Eosinophils # 0.1 Basophils # 0.1 Toxic Granulation Present A Platelet Estimate Slight increase H ESR 105 H Sodium 137 Potassium 3.9 Chloride 106 Carbon Dioxide 22 L BUN 12 Creatinine 0.70 Est GFR ( Amer) > 60 Est GFR (Non-Af Amer) > 60 BUN/Creatinine Ratio 17 Glucose 104 Calculated Osmolality 284 Calcium 7.6 L C-Reactive Protein 117 H Cultures: Cultures 06/21/17 20:20 Wound Culture - Preliminary Right Leg Staphylococcus aureus Exam - Constitutional Vitals: Temp Pulse Resp BP Pulse Ox 98.5 F 84 16 130/83 97 06/23/17 07:03 06/23/17 09:58 06/23/17 07:03 06/23/17 09:58 06/23/17 07:31 General appearance: average body habitus, cooperative, no acute distress - Head Head exam: Present: atraumatic, normal inspection, normocephalic - Eye Eye exam: Present: EOMI, normal appearance, PERRL Pupils: Present: normal accommodation - ENT ENT exam: Present: mucous membranes moist - Neck Neck exam: Present: normal inspection - Respiratory Respiratory exam: Present: CTAB. Absent: rales, respiratory distress, rhonchi, wheezes - Cardiovascular Cardiovascular exam: Present: RRR, +S1, +S2 - GI/Abdominal GI/Abdominal exam: Present: normal bowel sounds, soft. Absent: distended, tenderness - Extremities Exam Additional comments: RLE erythema noted from groin to toes. Minimal edema. MARQUEZ wrap dressing noted to the right lower thigh and knee. ROM limited due to pain. Warm to touch. - Neurological Exam Neurological exam: Present: alert, oriented X3, no focal deficits - Psychiatric Psychiatric exam: Present: normal affect, normal mood - Skin Skin exam: Present: dry, intact, normal color, warm Consult Discharge Plan - Plan Referrals: NONE,PCP [Primary Care Provider] - - Attending Attestation I examined this patient and my medical decision-making was reviewed with the Resident Physician. I agree with the documented findings, disposition and treatment plan as described except to the extent set forth below.
[2017-06-23] MEDS: *HR* HYDROcodone/Acet 5/325 mg TABLET PO PRN ×2 (12:07→18:31)
--- NOTE | 2017-06-23 15:55 | Orthopedics Progress Note ---
Date of Encounter: 06/23/17 Time of Encounter: 15:53 - Assessment and Plan (1) Cellulitis Current Visit: No Status: Inactive Qualifiers: Site of cellulitis: extremity Site of cellulitis of extremity: lower extremity Laterality: right Qualified Code(s): L03.115 - Cellulitis of right lower limb Subjective Interval history: S: Resting in bed. No new complaints Pain to the right lower extremity as expected; slightly improved compared to this morning. O: Afebrile/VSS Intensity of cellulitis continues to improve Further improved swelling to the right lower extremity Wounds are evaluated with minimal bloody drainage No purulence Improved motion about the knee Thigh and leg compartments are soft He can dorsiflex and plantarflex ankle and toes The foot is sensate and well-perfused with a bounding dorsalis pedis pulse Cultures growing S. aureus A: Post incision, drainage, irrigation, and debridement of the right lower extremity doing well P: Improving clinically WBC with slight bump, but LRINEC score has improved to < 6. Dramatic improvement of CRP I will continue BID dressing changes personally Continue abx per ID Labs tomorrow (ESR, CRP, CBC) No plans on further debridement at this point as he continues to improve Objective Vital signs: Vital Signs Temp Pulse Resp BP Pulse Ox 06/23/17 11:24 98.3 F 83 16 133/91 97 06/23/17 09:58 84 130/83 06/23/17 07:31 97 06/23/17 07:03 98.5 F 82 16 143/88 97 06/23/17 03:36 97.9 F 80 16 136/79 99 06/22/17 22:55 98.5 F 87 16 127/73 98 06/22/17 19:00 97.7 F 104 16 110/66 98 06/22/17 16:26 98.5 F 99 17 110/68 98 Intake and Output 06/22/17 06/23/17 06/23/17 23:59 07:59 15:59 Intake Total 350 / 350 300 / 300 300 / 300 Output Total 1275 / 1275 1300 / 1300 450 / 450 Balance -925 / -925 -1000 / -1000 -150 / -150 Intake: IV Fluids 50 / 50 250 / 250 300 / 300 Cleocin Premix 900 MG/50 ML 900 50 / 50 50 / 50 50 / 50 mg In 50 ml @ 50 mls/hr IVPB Q8H [facility] Rx#:[id number] Zosyn 3.375 GM In 0.9 % Sodium 200 / 200 Chloride (Mini-Bag +) 100 ML @ 25 mls/hr IVPB Q8H [facility] Rx#: [id number] Vancocin 1,000 MG In 0.9 % 250 / 250 Sodium Chloride 250 ML @ 125 mls/hr IVPB Q12H [facility] Rx#: [id number] Oral 300 / 300 50 / 50 Output: Urine 1275 / 1275 1300 / 1300 450 / 450 Other: Meal Dinner Percent of Meal Consumed 50% Stool Size Large Stool Consistency soft Stool Color Brown # Voids 1 Weight 75 kg Patient Weight 06/23/17 23:59 Weight 75 kg - Labs CBC & BMP: 06/23/17 00:59 03 00:59 Labs: Abnormal lab results WBC 27.1 K/mcL (4.3-11.1) H 06/23/17 00:59 RBC 3.42 M/mcL (4.19-5.50) L 06/23/17 00:59 Hgb 10.4 g/dL (12.9-16.9) L 06/23/17 00:59 Hct 31.1 % (37.5-50.1) L 06/23/17 00:59 MPV 9.3 fL (9.4-12.4) L 06/23/17 00:59 Immature Gran % 5.3 % (0-4) H 06/23/17 00:59 Neutrophils # 20.6 K/mcL (1.6-8.9) H 06/23/17 00:59 Monocytes # 1.6 K/mcL (0.0-1.3) H 06/23/17 00:59 Toxic Granulation Present (Not Present) A 06/23/17 00:59 Platelet Estimate Slight increase (Normal) H 06/23/17 00:59 Anisocytosis 1+ (Not Present) A 06/22/17 00:46 Macrocytosis Present (Not Present) A 06/22/17 00:46 ESR 105 mm/hr (0-10) H 06/23/17 00:59 PT 13.2 Seconds (9.4-12.1) H 06/21/17 18:42 Carbon Dioxide 22 mEq/L (23-29) L 06/23/17 00:59 Calcium 7.6 mg/dL (8.6-10.3) L 06/23/17 00:59 C-Reactive Protein 117 mg/L (Less than 10) H 06/23/17 00:59 Consult Discharge Plan - Plan Referrals: NONE,PCP [Primary Care Provider] -
[2017-06-23] MEDS ORDERED: *HR* FentaNYL (PF) 100 MCG/2 ML VIAL IVP ONE (17:03)
--- NOTE | 2017-06-23 17:06 | Internal Med Progress Note ---
Date of Encounter: 06/23/17 Time of Encounter: 17:06 - Subjective Interval history: HPI: Mr. Braxton is a 47 year old male W(ITH a past medical history of nephrolithiasis, overdoses although he denies it, who was transferred from [place] due to severe right lower extremity pain. Apparently on Monday he fell chasing his dog, scratched his knee and on Monday his leg turned extremely tender, erythematous to the point he was barely able to move it. Today his white blood cell count is 25,000 platelets 447 glucose 110 complaining of 10 out of 10 pain, no imaging has been done in the ER. Patient was given a dose of vancomycin and apparently he had a reaction when he was complaining of burning. He has multiple allergies. According to the nurse he is blood pressure was 199/110 in the ambulance, heart rate was 94. The patient is in excruciating pain of the moment, the right knee appears very tender, erythematous there is possibly underneath, erythema is extending up to the proximal thigh and way below the knee. Has been having chills at home, non- quantified fevers. Interval changes: Pain controlled Still very nauseated Afebrile Assessment and Plan (1) Sepsis Extensive lower extremity abscess and cellulitis Intraoperative cultures pending (2) Cellulitis and abscess of right leg Status: Acute Assessment and plan: Extensive abscess and right lower extremities with overlying cellulitis Irrigation and debridement on 06/21/[address] Silva No necrotic tissue seen during surgery Started as abrasion on his knee on 06/16/17 Highly elevated ESR/CRP of 100/246 Currently on Vancomycin, Zosyn, and clindamycin Load cultures drawn, will wait for results Pain controlled with Morphine, Dilaudid, and Fentanyl Hypertension: Complicated by pain. Better controlled today - Constitutional Vitals: Temp Pulse Resp BP Pulse Ox 98.3 F 83 16 133/91 97 06/23/17 11:24 06/23/17 11:24 06/23/17 11:24 06/23/17 11:24 06/23/17 11:24 General appearance: Present: mild distress, A&O X 3, pleasant, answers questions appropriately - Head Head exam: Present: atraumatic, normocephalic - Eye Eye exam: Present: PERRL, conjuntiva pink, sclera anicteric Pupils: Present: PERRL - Neck Neck exam general surgery: Present: supple, trachea midline. Absent: lymphadenopathy - Respiratory Respiratory exam: Present: CTAB. Absent: accessory muscle use, rales, rhonchi, wheezes - Cardiovascular Cardiovascular exam: Present: RRR, +S1, +S2. Absent: diastolic murmur, gallop, rubs, systolic murmur - GI/Abdominal GI/Abdominal exam: Present: normal bowel sounds, soft, no peritoneal signs. Absent: distended, tenderness - Extremities Exam Extremities exam: Present: warm, radial pulses palpable and symmetrical. Absent : calf tenderness, cyanotic, pedal edema - Neurological Exam Neurological exam: Present: CN II-XII intact, oriented X3, no focal deficits. Absent: pronater drift, facial droop, speech deficit - Skin Skin exam: Present: dry, intact Internal Medicine: Result - Labs CBC & Chem 7: 06/23/17 00:59 06/23/17 00:59 Labs: Short CBC 06/23/17 Range/Units 00:59 WBC 27.1 H (4.3-11.1) K/mcL Hgb 10.4 L (12.9-16.9) g/dL Hct 31.1 L (37.5-50.1) % Plt Count 397 (140-400) K/mcL Neutrophils # 20.6 H (1.6-8.9) K/mcL BMP 06/23/17 00:59 Sodium 137 Potassium 3.9 Chloride 106 Carbon Dioxide 22 L BUN 12 Creatinine 0.70 Glucose 104 Calcium 7.6 L - ABG Interpretation ABG results: PT/INR, D-dimer PT 13.2 Seconds (9.4-12.1) H 06/21/17 18:42 Consult Discharge Plan - Plan Referrals: NONE,PCP [Primary Care Provider] -
[2017-06-24] MEDS: *HR* HYDROcodone/Acet 5/325 mg TABLET PO PRN ×4 (01:20→22:12)
[2017-06-24 01:54] LABS: Basophils # 0.2 K/mcL (0.0-0.2); Basophils % 0.8 %; Eosinophils # 0.1 K/mcL (0.0-0.6); Eosinophils % 0.6 %; Hematocrit 35.2 % (37.5-50.1); Hemoglobin 11.6 g/dL (12.9-16.9); Immature Granulocytes % 6.5 % (0-4); Lymphocytes # 4.3 K/mcL (0.6-4.6); Lymphocytes % 22.7 %; Mean Corpuscular Hemoglobin 29.8 pg (28.0-33.3); Mean Corpuscular Volume 90.5 fL (83.0-100.0); Mean Platelet Volume 9.1 fL (9.4-12.4); Monocytes # 1.2 K/mcL (0.0-1.3); Monocytes % 6.2 %; Platelet Count 425 K/mcL (140-400); Red Blood Count 3.89 M/mcL (4.19-5.50); Red Cell Distribution Width 12.7 % (11.5-14.5); Segmented Neutrophils % 63.2 %
[2017-06-24 02:00] LABS: Neutrophils # 11.9 K/mcL (1.6-8.9)
[2017-06-24 02:15] LABS: Platelet Estimate Increased (Normal); Toxic Granulation Present (Not Present)
[2017-06-24] MEDS: Piperacillin/Tazobactam 3.375 GM in 0.9 % Sodium Chloride Mini Bag 100 ML IVPB SCH ×3 (03:31→20:05)
[2017-06-24] MEDS: *HR* HYDROmorphone 4 MG TABLET PO PRN ×3 (03:34→20:13)
[2017-06-24] MEDS: Clindamycin 900 MG/50 ML 900 MG/50 ML IV.SOLN IVPB SCH ×3 (06:34→22:12)
[2017-06-24] MEDS: *HR* Heparin 5,000 UNIT/ML VIAL SQ SCH ×2 (06:34→16:27)
[2017-06-24 08:21] LABS: BUN/Creatinine Ratio 18 (6-26); Blood Urea Nitrogen 14 mg/dL (6-20); Calcium 8.3 mg/dL (8.6-10.3); Carbon Dioxide 27 mEq/L (23-29); Chloride 101 mEq/L (98-107); Glucose 82 mg/dL (70-105); Osmolality,Calculated 280 (280-300); Sodium 135 mEq/L (136-145); eGFR For African Americans > 60 (> 60); eGFR For Non-African Americans > 60 (> 60)
[2017-06-24] MEDS: Nicotine 14 MG PATCH.TD24 TD SCH (09:15)
[2017-06-24 10:53] LABS: Vancomycin,Trough 9 mcg/mL (5-10)
--- NOTE | 2017-06-24 12:34 | Orthopedics Progress Note ---
Date of Encounter: 06/24/17 Time of Encounter: 12:32 Subjective Interval history: S: No new issues overnight. Right lower extremity pain has improved since preop. Denies any subjective fevers or chills. O: AFVSS Cellulitis diminished relative to previous demarcation Both surgical sites are draining without purulence. Compartments soft and compressible No pain with short arc motion at the knee DNVI A: s/p irrigation and debridement of RLE P: Continues to improve clinically White blood cell count and CRP both improved BID dressing changes Continue abx per ID No plans for repeat surgery Objective Vital signs: Vital Signs Temp Pulse Resp BP Pulse Ox 06/24/17 11:20 98.7 F 89 16 165/84 98 06/24/17 06:43 98.3 F 87 17 124/82 95 06/24/17 05:00 98.5 F 77 17 143/82 99 06/23/17 22:42 98.7 F 87 16 143/91 100 06/23/17 18:22 98.4 F 86 16 145/96 100 06/23/17 17:18 98.9 F 82 16 135/86 98 Intake and Output 06/23/17 06/24/17 06/24/17 23:59 07:59 15:59 Intake Total 400 / 400 1000 / 1000 Output Total 600 / 600 1700 / 1700 275 / 275 Balance -200 / -200 -700 / -700 -275 / -275 Intake: IV Fluids 400 / 400 200 / 200 Cleocin Premix 900 MG/50 ML 900 50 / 50 mg In 50 ml @ 50 mls/hr IVPB Q8H [facility] Rx#:[id number] Zosyn 3.375 GM In 0.9 % Sodium 100 / 100 200 / 200 Chloride (Mini-Bag +) 100 ML @ 25 mls/hr IVPB Q8H [facility] Rx#: [id number] Vancocin 1,000 MG In 0.9 % 250 / 250 Sodium Chloride 250 ML @ 125 mls/hr IVPB Q12H [facility] Rx#: [id number] Oral 800 / 800 Output: Urine 600 / 600 1700 / 1700 275 / 275 Other: Meal Breakfast Percent of Meal Consumed 50% Stool Size Copious Moderate Stool Consistency liquid liquid Stool Characteristics Foamy Normal for Patient Stool Color Brown # Bowel Movements 1 - Labs CBC & BMP: 06/24/17 01:16 06/24/17 07:44 Labs: Abnormal lab results WBC 18.9 K/mcL (4.3-11.1) H 06/24/17 01:16 RBC 3.89 M/mcL (4.19-5.50) L 06/24/17 01:16 Hgb 11.6 g/dL (12.9-16.9) L 06/24/17 01:16 Hct 35.2 % (37.5-50.1) L 06/24/17 01:16 Plt Count 425 K/mcL (140-400) H 06/24/17 01:16 MPV 9.1 fL (9.4-12.4) L 06/24/17 01:16 Immature Gran % 6.5 % (0-4) H 06/24/17 01:16 Neutrophils # 11.9 K/mcL (1.6-8.9) H 06/24/17 01:16 Toxic Granulation Present (Not Present) A 06/24/17 01:16 Platelet Estimate Increased (Normal) H 06/24/17 01:16 Anisocytosis 1+ (Not Present) A 06/22/17 00:46 Macrocytosis Present (Not Present) A 06/22/17 00:46 ESR 112 mm/hr (0-10) H 06/24/17 01:16 PT 13.2 Seconds (9.4-12.1) H 06/21/17 18:42 Sodium 135 mEq/L (136-145) L 06/24/17 07:44 Calcium 8.3 mg/dL (8.6-10.3) L 06/24/17 07:44 C-Reactive Protein 60 mg/L (Less than 10) H 06/24/17 01:16 Consult Discharge Plan - Plan Referrals: NONE,PCP [Primary Care Provider] -
[2017-06-24] MEDS ORDERED: Aminoglycoside Consult 1 EACH MC ONE (16:32)
[2017-06-24] MEDS ORDERED: Ondansetron ODT 4 MG TAB.RAPDIS SL PRN (16:49)
--- NOTE | 2017-06-24 22:13 | Internal Med Progress Note ---
Date of Encounter: 06/24/17 Time of Encounter: 18:24 - Subjective Interval history: HPI: Mr. Braxton is a 47 year old male W(ITH a past medical history of nephrolithiasis, overdoses although he denies it, who was transferred from [place] due to severe right lower extremity pain. Apparently on Monday he fell chasing his dog, scratched his knee and on Monday his leg turned extremely tender, erythematous to the point he was barely able to move it. Today his white blood cell count is 25,000 platelets 447 glucose 110 complaining of 10 out of 10 pain, no imaging has been done in the ER. Patient was given a dose of vancomycin and apparently he had a reaction when he was complaining of burning. He has multiple allergies. According to the nurse he is blood pressure was 199/110 in the ambulance, heart rate was 94. The patient is in excruciating pain of the moment, the right knee appears very tender, erythematous there is possibly underneath, erythema is extending up to the proximal thigh and way below the knee. Has been having chills at home, non- quantified fevers. Interval changes: Pain controlled Still very nauseated today Afebrile Assessment and Plan (1) Sepsis Extensive lower extremity abscess and cellulitis Cultures positive for MRSA Blood cx NTD (2) Cellulitis and abscess of right leg Extensive abscess and right lower extremities with overlying cellulitis Irrigation and debridement on 06/21/[address] Silva No necrotic tissue seen during surgery Started as abrasion on his knee on 06/16/17 Highly elevated ESR/CRP of 100/246 Currently on Vancomycin, Zosyn, and clindamycin Load cultures drawn, will wait for results Pain controlled with Morphine, Dilaudid, and Fentanyl (3) Hypertension: Complicated by pain. Better controlled today - Constitutional Vitals: Temp Pulse Resp BP Pulse Ox 98.3 F 83 17 117/79 96 06/24/17 18:57 06/24/17 18:57 06/24/17 18:57 06/24/17 18:57 06/24/17 18:57 General appearance: Present: mild distress, A&O X 3, pleasant, answers questions appropriately - Head Head exam: Present: atraumatic, normocephalic - Eye Eye exam: Present: EOMI, PERRL, conjuntiva pink, sclera anicteric Pupils: Present: PERRL - Neck Neck exam general surgery: Present: supple, trachea midline. Absent: lymphadenopathy - Respiratory Respiratory exam: Present: CTAB. Absent: accessory muscle use, rales, rhonchi, wheezes - Cardiovascular Cardiovascular exam: Present: RRR, +S1, +S2. Absent: diastolic murmur, gallop, rubs, systolic murmur - GI/Abdominal GI/Abdominal exam: Present: normal bowel sounds, soft, no peritoneal signs. Absent: distended, tenderness - Extremities Exam Extremities exam: Present: warm. Absent: calf tenderness, cyanotic, pedal edema - Neurological Exam Neurological exam: Present: CN II-XII intact, oriented X3, no focal deficits. Absent: pronater drift, facial droop, speech deficit - Psychiatric Psychiatric exam: Present: normal affect, normal mood - Skin Skin exam: Present: dry, intact Internal Medicine: Result - Labs CBC & Chem 7: 06/24/17 01:16 06/24/17 07:44 Labs: Short CBC 06/24/17 Range/Units 01:16 WBC 18.9 H (4.3-11.1) K/mcL Hgb 11.6 L (12.9-16.9) g/dL Hct 35.2 L (37.5-50.1) % Plt Count 425 H (140-400) K/mcL Neutrophils # 11.9 H (1.6-8.9) K/mcL BMP 06/24/17 07:44 Sodium 135 L Potassium 4.0 Chloride 101 Carbon Dioxide 27 BUN 14 Creatinine 0.77 Glucose 82 Calcium 8.3 L - ABG Interpretation ABG results: PT/INR, D-dimer PT 13.2 Seconds (9.4-12.1) H 06/21/17 18:42 Consult Discharge Plan - Plan Referrals: NONE,PCP [Primary Care Provider] -
[2017-06-25 03:08] LABS: Hematocrit 37.1 % (37.5-50.1); Hemoglobin 12.5 g/dL (12.9-16.9); Mean Corpuscular HGB Conc 33.7 g/dL (31.6-35.5); Mean Corpuscular Hemoglobin 30.3 pg (28.0-33.3); Platelet Count 482 K/mcL (140-400); Red Blood Count 4.12 M/mcL (4.19-5.50); Red Cell Distribution Width 12.8 % (11.5-14.5)
[2017-06-25 03:26] LABS: BUN/Creatinine Ratio 21 (6-26); Blood Urea Nitrogen 17 mg/dL (6-20); Calcium 8.3 mg/dL (8.6-10.3); Carbon Dioxide 27 mEq/L (23-29); Chloride 102 mEq/L (98-107); Glucose 102 mg/dL (70-105); Osmolality,Calculated 280 (280-300); Sodium 134 mEq/L (136-145); eGFR For African Americans > 60 (> 60); eGFR For Non-African Americans > 60 (> 60)
[2017-06-25] MEDS: Piperacillin/Tazobactam 3.375 GM in 0.9 % Sodium Chloride Mini Bag 100 ML IVPB SCH ×3 (05:01→19:53)
[2017-06-25] MEDS: *HR* HYDROmorphone 4 MG TABLET PO PRN ×3 (05:13→20:08)
[2017-06-25] MEDS: *HR* Heparin 5,000 UNIT/ML VIAL SQ SCH ×2 (06:28→17:47)
[2017-06-25] MEDS: Clindamycin 900 MG/50 ML 900 MG/50 ML IV.SOLN IVPB SCH ×3 (06:29→22:44)
[2017-06-25] MEDS: *HR* HYDROcodone/Acet 5/325 mg TABLET PO PRN ×3 (09:15→23:55)
[2017-06-25] MEDS: Nicotine 14 MG PATCH.TD24 TD SCH (09:16)
--- NOTE | 2017-06-25 10:42 | Orthopedics Progress Note ---
Date of Encounter: 06/25/17 Time of Encounter: 10:40 Subjective Interval history: S: No new issues. Right lower extremity pain has improved since preop. Denies fevers or chills. O: AFVSS Ctx +MRSA Cellulitis diminished from yesterday Both surgical sites are draining without purulence. Compartments soft and compressible No pain with short arc motion at the knee, pain with any extended motion DNVI A: s/p irrigation and debridement of RLE with clinical improvement P: BID dressing changes Continue abx per ID No plans for repeat surgery ROM of knee encouraged Objective Vital signs: Vital Signs Temp Pulse Resp BP Pulse Ox 06/25/17 10:35 98.2 F 90 16 116/69 97 06/25/17 06:52 98.0 F 74 16 120/78 96 06/24/17 23:52 98.0 F 72 16 136/89 97 06/24/17 18:57 98.3 F 83 17 117/79 96 06/24/17 15:19 98.6 F 84 16 136/84 95 06/24/17 11:20 98.7 F 89 16 165/84 98 Intake and Output 06/24/17 06/25/17 06/25/17 22:59 07:59 15:59 Intake Total 240 / 240 Output Total 300 / 300 Balance -60 / -60 Intake: IV Fluids Cleocin Premix 900 MG/50 ML 900 mg In 50 ml @ 50 mls/hr IVPB Q8H [facility] Rx#:[id number] Zyvox Premix 600mg/300mL 600 mg In 300 ml @ 150 mls/hr IVPB Q12H [facility] Rx#:[id number] Zosyn 3.375 GM In 0.9 % Sodium Chloride (Mini-Bag +) 100 ML @ 25 mls/hr IVPB Q8H [facility] Rx#: [id number] Oral 240 / 240 Output: Urine 300 / 300 Other: Meal Breakfast Percent of Meal Consumed 90% Stool Size Moderate Stool Consistency loose liquid Stool Color Brown # Bowel Movement Diapers 1 Weight Patient Weight 06/26/17 00:59 Weight 77.2 kg - Labs CBC & BMP: 06/25/17 01:45 06/25/17 01:45 Labs: Abnormal lab results WBC 18.5 K/mcL (4.3-11.1) H 06/25/17 01:45 RBC 4.12 M/mcL (4.19-5.50) L 06/25/17 01:45 Hgb 12.5 g/dL (12.9-16.9) L 06/25/17 01:45 Hct 37.1 % (37.5-50.1) L 06/25/17 01:45 Plt Count 482 K/mcL (140-400) H 06/25/17 01:45 MPV 9.0 fL (9.4-12.4) L 06/25/17 01:45 Immature Gran % 6.5 % (0-4) H 06/24/17 01:16 Neutrophils # 11.9 K/mcL (1.6-8.9) H 06/24/17 01:16 Toxic Granulation Present (Not Present) A 06/24/17 01:16 Platelet Estimate Increased (Normal) H 06/24/17 01:16 Anisocytosis 1+ (Not Present) A 06/22/17 00:46 Macrocytosis Present (Not Present) A 06/22/17 00:46 ESR >= 130 mm/hr (0-10) H 06/25/17 01:45 PT 13.2 Seconds (9.4-12.1) H 06/21/17 18:42 Sodium 134 mEq/L (136-145) L 06/25/17 01:45 Calcium 8.3 mg/dL (8.6-10.3) L 06/25/17 01:45 C-Reactive Protein 46 mg/L (Less than 10) H 06/25/17 01:45 Consult Discharge Plan - Plan Referrals: NONE,PCP [Primary Care Provider] -
--- NOTE | 2017-06-25 17:18 | Internal Med Progress Note ---
Date of Encounter: 06/25/17 Time of Encounter: 17:10 - Subjective Interval history: HPI: Mr. Braxton is a 47 year old male W(ITH a past medical history of nephrolithiasis, overdoses although he denies it, who was transferred from [place] due to severe right lower extremity pain. Apparently on Monday he fell chasing his dog, scratched his knee and on Monday his leg turned extremely tender, erythematous to the point he was barely able to move it. Today his white blood cell count is 25,000 platelets 447 glucose 110 complaining of 10 out of 10 pain, no imaging has been done in the ER. Patient was given a dose of vancomycin and apparently he had a reaction when he was complaining of burning. He has multiple allergies. According to the nurse he is blood pressure was 199/110 in the ambulance, heart rate was 94. The patient is in excruciating pain of the moment, the right knee appears very tender, erythematous there is possibly underneath, erythema is extending up to the proximal thigh and way below the knee. Has been having chills at home, non- quantified fevers. Interval changes: Pain controlled Nausea improved Over night he had severe itching with Vanco and oncace BATEMAN changed Vanc to Zyvox Assessment and Plan (1) Sepsis Extensive lower extremity abscess and cellulitis s/p debridement Cultures positive for MRSA Blood cx NTD (2) Cellulitis and abscess of right leg Extensive abscess and right lower extremities with overlying cellulitis Irrigation and debridement on 06/21/[address] Silva No necrotic tissue seen during surgery Started as abrasion on his knee on 06/16/17 Highly elevated ESR/CRP of 100/246 Currently on Vancomycin, Zosyn, and clindamycin (Vanc --> Zyvox overnight) Pain controlled with Morphine and Dilaudid (3) Hypertension: Complicated by pain. Controlled now - Constitutional Vitals: Temp Pulse Resp BP Pulse Ox 98.3 F 75 17 101/68 98 06/25/17 15:40 06/25/17 15:40 06/25/17 15:40 06/25/17 15:40 06/25/17 15:40 General appearance: Present: mild distress, A&O X 3, pleasant, answers questions appropriately - Head Head exam: Present: atraumatic, normocephalic - Eye Eye exam: Present: PERRL, conjuntiva pink, sclera anicteric Pupils: Present: PERRL - Neck Neck exam general surgery: Present: supple, trachea midline. Absent: lymphadenopathy - Respiratory Respiratory exam: Present: CTAB. Absent: accessory muscle use, rales, rhonchi, wheezes - Cardiovascular Cardiovascular exam: Present: RRR, +S1, +S2. Absent: diastolic murmur, gallop, rubs, systolic murmur - GI/Abdominal GI/Abdominal exam: Present: normal bowel sounds, soft, no peritoneal signs. Absent: distended, tenderness - Extremities Exam Extremities exam: Present: warm, radial pulses palpable and symmetrical. Absent : calf tenderness, cyanotic, pedal edema - Neurological Exam Neurological exam: Present: CN II-XII intact, oriented X3, no focal deficits. Absent: pronater drift, facial droop, speech deficit - Psychiatric Psychiatric exam: Present: normal affect, normal mood - Skin Skin exam: Present: dry, intact Internal Medicine: Result - Labs CBC & Chem 7: 06/25/17 01:45 06/25/17 01:45 Labs: Short CBC 06/25/17 Range/Units 01:45 WBC 18.5 H (4.3-11.1) K/mcL Hgb 12.5 L (12.9-16.9) g/dL Hct 37.1 L (37.5-50.1) % Plt Count 482 H (140-400) K/mcL BMP 06/25/17 01:45 Sodium 134 L Potassium 4.0 Chloride 102 Carbon Dioxide 27 BUN 17 Creatinine 0.82 Glucose 102 Calcium 8.3 L - ABG Interpretation ABG results: PT/INR, D-dimer PT 13.2 Seconds (9.4-12.1) H 06/21/17 18:42 Consult Discharge Plan - Plan Referrals: NONE,PCP [Primary Care Provider] -
[2017-06-26] MEDS ORDERED: Methocarbamol 500 MG TABLET PO PRN (00:14)
[2017-06-26 02:21] LABS: Hematocrit 37.8 % (37.5-50.1); Hemoglobin 12.8 g/dL (12.9-16.9); Mean Corpuscular HGB Conc 33.9 g/dL (31.6-35.5); Mean Corpuscular Hemoglobin 30.5 pg (28.0-33.3); Platelet Count 499 K/mcL (140-400); Red Cell Distribution Width 12.5 % (11.5-14.5)
[2017-06-26] MEDS: Piperacillin/Tazobactam 3.375 GM in 0.9 % Sodium Chloride Mini Bag 100 ML IVPB SCH ×2 (04:10→12:26)
[2017-06-26] MEDS: Clindamycin 900 MG/50 ML 900 MG/50 ML IV.SOLN IVPB SCH ×2 (06:45→15:59)
[2017-06-26] MEDS: *HR* HYDROcodone/Acet 5/325 mg TABLET PO PRN ×3 (06:45→20:56)
[2017-06-26] MEDS: *HR* Heparin 5,000 UNIT/ML VIAL SQ SCH ×2 (06:45→17:33)
[2017-06-26 06:56] LABS: Hemoglobin 13.3 g/dL (12.9-16.9); Mean Corpuscular HGB Conc 34.1 g/dL (31.6-35.5); Mean Corpuscular Hemoglobin 30.2 pg (28.0-33.3); Mean Corpuscular Volume 88.6 fL (83.0-100.0); Mean Platelet Volume 8.8 fL (9.4-12.4); Platelet Count 489 K/mcL (140-400); Red Cell Distribution Width 12.5 % (11.5-14.5)
[2017-06-26 07:11] LABS: BUN/Creatinine Ratio 19 (6-26); Blood Urea Nitrogen 15 mg/dL (6-20); Calcium 8.6 mg/dL (8.6-10.3); Carbon Dioxide 24 mEq/L (23-29); Chloride 102 mEq/L (98-107); Glucose 93 mg/dL (70-105); Osmolality,Calculated 279 (280-300); Potassium 3.9 mEq/L (3.5-5.1); Sodium 134 mEq/L (136-145); eGFR For African Americans > 60 (> 60); eGFR For Non-African Americans > 60 (> 60)
--- NOTE | 2017-06-26 07:33 | Orthopedics Progress Note ---
Date of Encounter: 06/26/17 Time of Encounter: 07:31 - Assessment and Plan (1) Cellulitis Current Visit: No Status: Inactive Qualifiers: Site of cellulitis: extremity Site of cellulitis of extremity: lower extremity Laterality: right Qualified Code(s): L03.115 - Cellulitis of right lower limb Subjective Interval history: S: Resting in bed. No new complaints Expected postoperative pain Has been up walking O: Afebrile/VSS Cellulitis almost completely resolved Further improved swelling to the right lower extremity Wounds are evaluated with minimal bloody drainage No purulence Improved motion about the knee Thigh and leg compartments are soft He can dorsiflex and plantarflex ankle and toes The foot is sensate and well-perfused with a bounding dorsalis pedis pulse Cultures growing MRSA A: Post incision, drainage, irrigation, and debridement of the right lower extremity Doing well P: Improving clinically CRP down to 26 from 262 on admission LRINEC score is < 6; Daily dressing changes Continue abx per ID; was placed on Zyvox by hospitalist given itching during Vancomycin administration No plans on further debridement at this point as he continues to improve Objective Vital signs: Vital Signs Temp Pulse Resp BP Pulse Ox 06/26/17 06:55 98.5 F 78 16 129/84 98 06/26/17 00:44 98.4 F 71 18 135/88 97 06/25/17 21:23 98.7 F 90 16 143/85 98 06/25/17 15:40 98.3 F 75 17 101/68 98 06/25/17 10:35 98.2 F 90 16 116/69 97 Intake and Output 06/25/17 06/25/17 06/26/17 15:59 23:59 07:59 Intake Total 740 / 740 580 / 580 300 / 300 Output Total 300 / 300 300 / 300 1150 / 1150 Balance 440 / 440 280 / 280 -850 / -850 Intake: IV Fluids 500 / 500 200 / 200 300 / 300 Cleocin Premix 900 MG/50 ML 900 100 / 100 mg In 50 ml @ 50 mls/hr IVPB Q8H [facility] Rx#:[id number] Zyvox Premix 600mg/300mL 600 mg 300 / 300 300 / 300 In 300 ml @ 150 mls/hr IVPB Q12H [facility] Rx#:[id number] Zosyn 3.375 GM In 0.9 % Sodium 200 / 200 100 / 100 Chloride (Mini-Bag +) 100 ML @ 25 mls/hr IVPB Q8H [facility] Rx#: [id number] Oral 240 / 240 380 / 380 Output: Urine 300 / 300 300 / 300 1150 / 1150 Other: Meal Breakfast Dinner Percent of Meal Consumed 90% 50% Stool Size Moderate Moderate Stool Consistency loose loose liquid Stool Characteristics Normal for Patient Stool Color Brown Brown # Bowel Movements 1 # Bowel Movement Diapers 1 - Labs CBC & BMP: 06/26/17 06:27 03 06:27 Labs: Abnormal lab results WBC 20.0 K/mcL (4.3-11.1) H 06/26/17 06:27 Plt Count 489 K/mcL (140-400) H 06/26/17 06:27 MPV 8.8 fL (9.4-12.4) L 06/26/17 06:27 Immature Gran % 6.5 % (0-4) H 06/24/17 01:16 Neutrophils # 11.9 K/mcL (1.6-8.9) H 06/24/17 01:16 Toxic Granulation Present (Not Present) A 06/24/17 01:16 Platelet Estimate Increased (Normal) H 06/24/17 01:16 Anisocytosis 1+ (Not Present) A 06/22/17 00:46 Macrocytosis Present (Not Present) A 06/22/17 00:46 ESR 98 mm/hr (0-10) H 06/26/17 00:51 PT 13.2 Seconds (9.4-12.1) H 06/21/17 18:42 Sodium 134 mEq/L (136-145) L 06/26/17 06:27 Calculated Osmolality 279 (280-300) L 06/26/17 06:27 C-Reactive Protein 26 mg/L (Less than 10) H 06/26/17 00:51 Consult Discharge Plan - Plan Referrals: NONE,PCP [Primary Care Provider] -
[2017-06-26] MEDS: Nicotine 14 MG PATCH.TD24 TD SCH (07:47)
[2017-06-26 08:34] LABS: Eosinophils # 0.4 K/mcL (0.0-0.6); Lymphocytes # 6.8 K/mcL (0.6-4.6); Monocytes # 1.6 K/mcL (0.0-1.3); Neutrophils # 11.2 K/mcL (1.6-8.9)
--- NOTE | 2017-06-26 10:23 | Infectious Disease Progress No ---
Date of Encounter: 06/26/17 Time of Encounter: 10:17 - Assessment and Plan (1) Sepsis Current Visit: Yes Status: Acute The patient had 2 SIRS criteria on admission, Likely secondary to RLE cellulitis and abscess. - No throughout inpatient stay, heart rate 78, respiratory 16, blood pressure 129/84 and oxygen saturation is 98% on room air. - White blood cell count remains elevated at 20, platelets elevated 489 - Blood culture from 06/21/17 preliminarily no growth. - Wound culture from June demonstrated MRSA Qualifiers: Sepsis type: sepsis due to unspecified organism Qualified Code(s): A41.9 - Sepsis, unspecified organism (2) Cellulitis and abscess of right leg Current Visit: Yes Status: Acute Location: Right lateral thigh, anterior knee, and proximal tib-fib. Causative organism: MRSA Source: Likely secondary to abrasion sustained during fall. CT scan completed 06/21/17 showed diffuse infection of the right lower extremity beginning at the level of the distal thigh extending to the level of the tib/ fib. ESR 98, CRP 26. - Ortho involved: Status post incision, drainage, irrigation, and debridement of the RLE 06/21/[address] Silva. - Patient had a stated reaction of itchiness to vancomycin which was discontinued on 06/25/2017 and he was started on Zyvox IV 600 mg/300 mls Q12hr Continue Zosyn 3.375 grams IV Q8H. Continue Clindamycin 900mg IV Q8H. - Creatinine clearance 129ml/min. plan to de-escalate antibiotics - Clinically improving, reduction in erythema, all compartments are soft. - Continue to monitor renal function and for drug toxicity. (3) Hematuria Current Visit: Yes Status: Resolved No recurrence of hematuria Qualifiers: Hematuria type: gross Qualified Code(s): R31.0 - Gross hematuria (4) Accelerated hypertension Current Visit: Yes Status: Acute Management per the primary team. (5) Tobacco abuse Current Visit: Yes Status: Acute Continue to encourage tobacco cessation. - Subjective Interval history: Mr. Braxton 47-year-old male admitted 06/21/2017 with right lower extremity cellulitis and underwent I&D for large abscess extending from the thigh to the tibia-fibula is doing well this morning. He denies any fevers, chills, did have some mild diaphoresis but denies any headaches, change in vision, shortness of breath, chest pain or palpitations, abdominal pain, nausea vomiting or constipation or lower extremity warmth, tenderness. He does have some mild diarrhea which can be correlated with antibiotic use but denies significant frequency or abdominal tenderness. He feels that his right lower extremity is healing appropriately and that the erythema has improved. He is able to bend at the knee, dorsiflex and plantarflex his foot without discomfort or pain. He does have some incisional site pain and mild drainage from the incisional site but feels overall he is improving. Infect Dis PN-Objective Data - Labs CBC & Chem 7: 06/26/17 06:27 06/26/17 06:27 Labs: Laboratory Results - last 24 hr 06/26/17 06/26/17 06/26/17 00:51 00:51 00:51 WBC 19.5 H RBC 4.20 Hgb 12.8 L Hct 37.8 MCV 90.0 MCH 30.5 MCHC 33.9 RDW 12.5 Plt Count 499 H MPV 9.0 L Seg Neutrophils % Band Neutrophils % Lymphocytes % Monocytes % Eosinophils % Neutrophils # Lymphocytes # Monocytes # Eosinophils # Platelet Estimate ESR 98 H Sodium Potassium Chloride Carbon Dioxide BUN Creatinine Est GFR ( Amer) Est GFR (Non-Af Amer) BUN/Creatinine Ratio Glucose Calculated Osmolality Calcium C-Reactive Protein 26 H 06/26/17 06/26/17 06:27 06:27 WBC 20.0 H RBC 4.40 Hgb 13.3 Hct 39.0 MCV 88.6 MCH 30.2 MCHC 34.1 RDW 12.5 Plt Count 489 H MPV 8.8 L Seg Neutrophils % 52.0 Band Neutrophils % 4.0 Lymphocytes % 34.0 Monocytes % 8.0 Eosinophils % 2.0 Neutrophils # 11.2 H Lymphocytes # 6.8 H Monocytes # 1.6 H Eosinophils # 0.4 Platelet Estimate Slight increase H ESR Sodium 134 L Potassium 3.9 Chloride 102 Carbon Dioxide 24 BUN 15 Creatinine 0.78 Est GFR ( Amer) > 60 Est GFR (Non-Af Amer) > 60 BUN/Creatinine Ratio 19 Glucose 93 Calculated Osmolality 279 L Calcium 8.6 C-Reactive Protein Cultures: Cultures 06/21/17 20:20 Anaerobic Culture - Preliminary Right Leg At this time, no anaerobic growth is present. The culture will be finalized after 5 days of incubation. 06/21/17 20:20 Wound Culture - Final Right Leg Methicillin Resistant S.aureus 06/21/17 18:42 Blood Culture - Preliminary Peripheral Venipuncture No growth. Exam - Constitutional Vitals: Temp Pulse Resp BP Pulse Ox 98.5 F 78 16 129/84 98 06/26/17 06:55 06/26/17 06:55 06/26/17 06:55 06/26/17 06:55 06/26/17 07:48 General appearance: cooperative, no acute distress - Respiratory Respiratory exam: Present: CTAB. Absent: respiratory distress, rhonchi, wheezes , tachypnea - Cardiovascular Cardiovascular exam: Present: RRR, +S1, +S2 - GI/Abdominal GI/Abdominal exam: Present: normal bowel sounds. Absent: diminished bowel sounds, tenderness - Extremities Exam Extremities exam: Present: full ROM (All other extremities except right lower extremity.) - Expanded Lower Extremity Exam Lower Leg exam: Present: erythema (Right lower extremity and improving, postoperative day 5 I&D.) - Neurological Exam Neurological exam: Present: no focal deficits - Expanded Neurological Exam Sensory exam: lower extremity light touch: Normal, lower extremity temperature: Normal Consult Discharge Plan - Plan Referrals: NONE,PCP [Primary Care Provider] - - Attending Attestation I examined this patient and my medical decision-making was reviewed with the Resident Physician. I agree with the documented findings, disposition and treatment plan as described except to the extent set forth below. D/W ortho team who feel the patient is doing great clinically. Pt having diarrhea, two watery bowel movements today so far. at this point: d/c zyvox d/c clindamycin d/c zosyn at this point, will start bactrim DS one tab BID check C diff will monitor closely
[2017-06-26] MEDS: *HR* HYDROmorphone 4 MG TABLET PO PRN ×2 (11:21→19:58)
--- NOTE | 2017-06-26 16:35 | Internal Med Progress Note ---
Date of Encounter: 06/26/17 Time of Encounter: 16:35 - Subjective Interval history: HPI: Mr. Braxton is a 47 year old male with a past medical history of nephrolithiasis , overdoses although he denies it, who was transferred from [place] due to severe right lower extremity pain. Apparently on Monday he fell chasing his dog , scratched his knee and on Monday his leg turned extremely tender, erythematous to the point he was barely able to move it. Today his white blood cell count is 25,000 platelets 447 glucose 110 complaining of 10 out of 10 pain , no imaging has been done in the ER. Patient was given a dose of vancomycin and apparently he had a reaction when he was complaining of burning. He has multiple allergies. According to the nurse he is blood pressure was 199/110 in the ambulance, heart rate was 94. The patient is in excruciating pain of the moment, the right knee appears very tender, erythematous there is possibly underneath, erythema is extending up to the proximal thigh and way below the knee. Has been having chills at home, non-quantified fevers. Interval changes: Pain controlled Nausea improved Over night he had severe itching with Vanco and sana BATEMAN changed Vanc to Zyvox 06/26/2017: Having loose stools C.diff test ordered Assessment and Plan (1) Sepsis Extensive lower extremity abscess and cellulitis s/p debridement Cultures positive for MRSA Blood cx NTD (2) Cellulitis and abscess of right leg Extensive abscess and right lower extremities with overlying cellulitis Irrigation and debridement on 06/21/[address] Silva No necrotic tissue seen during surgery Started as abrasion on his knee on 06/16/17 Highly elevated ESR/CRP of 100/246 Currently on Vancomycin, Zosyn, and clindamycin (Vanc --> Zyvox overnight) Pain controlled with Morphine and Dilaudid (3) Hypertension: Complicated by pain. Controlled now - Constitutional Vitals: Temp Pulse Resp BP Pulse Ox 98.2 F 80 18 121/77 98 06/26/17 15:21 06/26/17 15:21 06/26/17 15:21 06/26/17 15:21 06/26/17 15:21 General appearance: Present: mild distress, A&O X 3, pleasant, answers questions appropriately - Head Head exam: Present: atraumatic, normocephalic - Eye Eye exam: Present: PERRL, conjuntiva pink, sclera anicteric Pupils: Present: PERRL - Neck Neck exam general surgery: Present: supple, trachea midline. Absent: lymphadenopathy - Respiratory Respiratory exam: Present: CTAB. Absent: accessory muscle use, rales, rhonchi, wheezes - Cardiovascular Cardiovascular exam: Present: RRR, +S1, +S2. Absent: diastolic murmur, gallop, rubs, systolic murmur - GI/Abdominal GI/Abdominal exam: Present: normal bowel sounds, soft, no peritoneal signs. Absent: distended, tenderness - Extremities Exam Extremities exam: Present: warm, radial pulses palpable and symmetrical. Absent : calf tenderness, cyanotic, pedal edema - Neurological Exam Neurological exam: Present: CN II-XII intact, oriented X3, no focal deficits. Absent: pronater drift, facial droop, speech deficit - Skin Skin exam: Present: dry, intact Internal Medicine: Result - Labs CBC & Chem 7: 06/26/17 06:27 06/26/17 06:27 Labs: Short CBC 06/26/17 06/26/17 Range/Units 00:51 06:27 WBC 19.5 H 20.0 H (4.3-11.1) K/mcL Hgb 12.8 L 13.3 (12.9-16.9) g/dL Hct 37.8 39.0 (37.5-50.1) % Plt Count 499 H 489 H (140-400) K/mcL Neutrophils # 11.2 H (1.6-8.9) K/mcL BMP 06/26/17 06:27 Sodium 134 L Potassium 3.9 Chloride 102 Carbon Dioxide 24 BUN 15 Creatinine 0.78 Glucose 93 Calcium 8.6 - ABG Interpretation ABG results: PT/INR, D-dimer PT 13.2 Seconds (9.4-12.1) H 06/21/17 18:42 Consult Discharge Plan - Plan Referrals: NONE,PCP [Primary Care Provider] -
[2017-06-26] MEDS: Sulfamethoxazole/Trimeth DS 1 EACH TABLET PO SCH (19:58)
[2017-06-27] MEDS: *HR* HYDROcodone/Acet 5/325 mg TABLET PO PRN ×2 (02:36→10:50)
[2017-06-27 05:43] LABS: Basophils % 0.2 %; Eosinophils # 0.2 K/mcL (0.0-0.6); Eosinophils % 0.9 %; Hematocrit 41.2 % (37.5-50.1); Hemoglobin 13.7 g/dL (12.9-16.9); Immature Granulocytes % 8.7 % (0-4); Lymphocytes # 4.4 K/mcL (0.6-4.6); Mean Corpuscular HGB Conc 33.3 g/dL (31.6-35.5); Mean Corpuscular Hemoglobin 30.1 pg (28.0-33.3); Mean Corpuscular Volume 90.5 fL (83.0-100.0); Mean Platelet Volume 8.8 fL (9.4-12.4); Monocytes # 0.9 K/mcL (0.0-1.3); Monocytes % 4.3 %; Platelet Count 530 K/mcL (140-400); Red Blood Count 4.55 M/mcL (4.19-5.50); Red Cell Distribution Width 12.6 % (11.5-14.5); Segmented Neutrophils % 64.9 %
[2017-06-27 06:05] LABS: Neutrophils # 13.6 K/mcL (1.6-8.9)
[2017-06-27] MEDS: *HR* HYDROmorphone 4 MG TABLET PO PRN (06:09)
[2017-06-27] MEDS: *HR* Heparin 5,000 UNIT/ML VIAL SQ SCH (06:10)
[2017-06-27 06:35] LABS: Large Platelets Present (Not Present); Platelet Estimate Increased (Normal); Toxic Granulation Present (Not Present)
--- NOTE | 2017-06-27 07:18 | Infectious Disease Progress No ---
Date of Encounter: 06/27/17 Time of Encounter: 07:18 - Assessment and Plan (1) Sepsis Current Visit: Yes Status: Acute The patient had 2 SIRS criteria on admission, Likely secondary to RLE cellulitis and abscess. Currently has tachycardia, leukocytosis, MRSA wound infection: - heart rate 108, respiratory 15, blood pressure 124/79 and oxygen saturation is 98% on room air. - White blood cell count remains elevated at 20, platelets elevated 530 - Blood culture from 06/21/17 - no growth. - Wound culture from June demonstrated MRSA Qualifiers: Sepsis type: sepsis due to unspecified organism Qualified Code(s): A41.9 - Sepsis, unspecified organism (2) Cellulitis and abscess of right leg Current Visit: Yes Status: Acute Location: Right lateral thigh, anterior knee, and proximal tib-fib. Causative organism: MRSA Source: Likely secondary to abrasion sustained during fall. CT scan completed 06/21/17 showed diffuse infection of the right lower extremity beginning at the level of the distal thigh extending to the level of the tib/ fib. ESR, CRP were elevated. - Ortho involved: Status post incision, drainage, irrigation, and debridement of the RLE 06/21/[address] Silva. - Patient had a stated reaction of itchiness to vancomycin which was discontinued on 06/25/2017 and he was started on Zyvox IV 600 mg/300 mls Q12hr - Creatinine clearance 129ml/min. - Yesterday discontinued Zyvox, clindamycin, Zosyn and started Bactrim DS 1 tab twice a day orally. - Clinically improving, reduction in erythema, all compartments are soft. - Continue to monitor renal function and for drug toxicity. (3) Diarrhea Current Visit: Yes Status: Acute Mr. Braxton started having episodes of diarrhea after admission and starting antibiotics. - Denies abdominal pain and frequency of stools reduced overnight. - Antibiotics D escalated yesterday. - C. difficile culture negative Suspect diarrhea likely secondary to antibiotics, I do not suspect infectious etiology. Qualifiers: Diarrhea type: unspecified type Qualified Code(s): R19.7 - Diarrhea, unspecified (4) Hematuria Current Visit: Yes Status: Resolved No recurrence of hematuria Qualifiers: Hematuria type: gross Qualified Code(s): R31.0 - Gross hematuria (5) Accelerated hypertension Current Visit: Yes Status: Acute Management per the primary team. (6) Tobacco abuse Current Visit: Yes Status: Acute Continue to encourage tobacco cessation. - Subjective Interval history: Mr. Braxton 47-year-old male admitted 06/21/2017 with right lower extremity cellulitis and underwent I&D for large abscess extending from the thigh to the tibia-fibula is doing well this morning. He denies any fevers, chills, diaphoresis, headaches, change in vision, shortness of breath, chest pain or palpitations, abdominal pain, nausea vomiting or constipation or lower extremity warmth. He does admit to some mild tenderness in his thigh just superior to his I&D site. He is able to flex at the knee without discomfort. Denies any increased warmth or change in incisional pain compared to yesterday. He feels that his diarrhea has much improved after de-escalation of antibiotics yesterday. Infect Dis PN-Objective Data - Labs CBC & Chem 7: 06/27/17 05:08 06/26/17 06:27 Labs: Laboratory Results - last 24 hr 06/26/17 06/26/17 06/27/17 06:27 21:00 05:08 WBC RBC Hgb Hct MCV MCH MCHC RDW Plt Count MPV Immature Gran % Seg Neutrophils % 52.0 Band Neutrophils % 4.0 Lymphocytes % 34.0 Monocytes % 8.0 Eosinophils % 2.0 Basophils % Neutrophils # 11.2 H Lymphocytes # 6.8 H Monocytes # 1.6 H Eosinophils # 0.4 Basophils # Toxic Granulation Platelet Estimate Slight increase H Large Platelets ESR 95 H C-Reactive Protein Stl C. diff Tox B Gene Negative 06/27/17 06/27/17 05:08 05:08 WBC 20.9 H RBC 4.55 Hgb 13.7 Hct 41.2 MCV 90.5 MCH 30.1 MCHC 33.3 RDW 12.6 Plt Count 530 H MPV 8.8 L Immature Gran % 8.7 H Seg Neutrophils % 64.9 Band Neutrophils % Lymphocytes % 21.0 Monocytes % 4.3 Eosinophils % 0.9 Basophils % 0.2 Neutrophils # 13.6 H Lymphocytes # 4.4 Monocytes # 0.9 Eosinophils # 0.2 Basophils # 0.0 Toxic Granulation Present A Platelet Estimate Increased H Large Platelets Present A ESR C-Reactive Protein 13 H Stl C. diff Tox B Gene Cultures: Cultures 06/21/17 18:42 Blood Culture - Final Peripheral Venipuncture No growth. 06/21/17 20:20 Anaerobic Culture - Preliminary Right Leg At this time, no anaerobic growth is present. The culture will be finalized after 5 days of incubation. 06/21/17 20:20 Wound Culture - Final Right Leg Methicillin Resistant S.aureus Serology 06/26/17 Range/Units 21:00 Stl C. diff Tox B Gene Negative (Negative) Exam - Constitutional Vitals: Temp Pulse Resp BP Pulse Ox 98.8 F 108 15 124/79 98 06/27/17 07:14 06/27/17 07:14 06/27/17 07:14 06/27/17 07:14 06/27/17 07:14 - Head Head exam: Present: atraumatic, normocephalic - ENT ENT exam: Present: mucous membranes moist - Respiratory Respiratory exam: Present: CTAB - Cardiovascular Cardiovascular exam: Present: RRR, +S1, +S2 - GI/Abdominal GI/Abdominal exam: Present: normal bowel sounds - Expanded Lower Extremity Exam Lower Leg exam: Present: erythema (Right lower extremity and improving, postoperative day 6 I&D.) - Neurological Exam Neurological exam: Present: no focal deficits Consult Discharge Plan - Plan Referrals: NONE,PCP [Primary Care Provider] - Prescriptions: HYDROcodone/Acet 5/325 mg [Harrah 5-325 mg] 1 tab PO Q6HR PRN 5 Days #20 tablet PRN Reason: Breakthrough Pain Sulfamethoxazole/Trimeth DS [Bactrim Ds] 1 each PO BID #14 tablet - Attending Attestation I examined this patient and my medical decision-making was reviewed with the Resident Physician. I agree with the documented findings, disposition and treatment plan as described except to the extent set forth below. patient clinically okay for now. patient's temp is slightly higher and had an episode of tachycardia if clinically worse, would consider restarting IV Vancomycin for now continue bactrim monitor labs and for drug toxicity
[2017-06-27] MEDS: Nicotine 14 MG PATCH.TD24 TD SCH (08:07)
[2017-06-27] MEDS: Sulfamethoxazole/Trimeth DS 1 EACH TABLET PO SCH (08:07)
[2017-06-27 10:49] VITALS: BP 106/76
--- NOTE | 2017-06-27 13:27 | Discharge Summary ---
- NOTES TO OUTPATIENT PROVIDER Notes to Outpatient Provider: Follow up with orthopedics Date of Encounter: 06/27/17 Time of Encounter: 11:00 - Discharge Diagnosis (1) Cellulitis and abscess of right leg Priority: Primary Status: Acute Hospital course: Patient is a 47-year-old male with past medical history significant for nephrolithiasis, overdoses although he denies it, who was transferred from [place] due to severe right lower extremity pain. Apparently he fell chasing his dog, scratched his knee and his leg turned extremely tender, erythematous to the point he was barely able to move it. In the ER, patient was found to have a white blood cell count is 25,000 platelets 447 glucose 110 complaining of 10 out of 10 pain, no imaging has been done in the ER. She was admitted to medical surgical floor for further management. During patients hospital stay orthopedics was consulted with recommendations for incision and drainage which was done. Cultures grew MRSA and he was treated with IV antibiotics and infectious disease was consult with recommendations to de-escalate to oral antibiotics. Patient will be discharged to continue a 7 day course of Bactrim and to follow- up with orthopedics as outpatient. - Time Spent with Patient Total time spent providing and/or coordinating discharge services: Less than 30 minutes - Discharge Medications Prescriptions: HYDROcodone/Acet 5/325 mg [[place] 5-325 mg] 1 tab PO Q6HR PRN 5 Days #20 tablet PRN Reason: Breakthrough Pain Sulfamethoxazole/Trimeth DS [Bactrim Ds] 1 each PO BID #14 tablet Home Medications: HYDROcodone/Acet 5/325 mg [[place] 5-325 mg] 1 tab PO Q6HR PRN 5 Days #20 tablet 06/27/17 [Rx] Sulfamethoxazole/Trimeth DS [Bactrim Ds] 1 each PO BID #14 tablet 06/27/17 [Rx] Allergies/Adverse Reactions: 3 Allergy/AdvReac Type Severity Reaction Status Date / Time amitriptyline Allergy See Verified 07/11/16 19:11 Comments hydrocodone [From Vicodin] Allergy See Verified 07/11/16 19:11 Comments ibuprofen Allergy See Verified 07/11/16 19:11 Comments meloxicam Allergy Nausea Verified 07/11/16 19:11 tiagabine [From Gabitril] Allergy See Verified 07/11/16 19:11 Comments vancomycin Allergy Rash Verified 06/21/17 15:55 morphine [From Avinza] AdvReac Intermediate See Verified 07/11/16 19:11 Comments Date of admission: 06/21/17 17:55 Primary care physician: PCP NONE Consults: 06/21/17 17:34 Consult to Orthopedic Surgery [CONS] Routine Consulting Provider: Bubba Silva Reason for Consult: severe right leg/ knee cellulitis/ abscess? Call Completed: Yes 06/21/17 17:53 Consult to Infectious Diseases [CONS] Routine Consulting Provider: Infectious Disease [place] Reason for Consult: right leg severe cellulitis, abscess? Call Completed: No - Constitutional Vitals: Temp Pulse Resp BP Pulse Ox 99.2 F 90 15 106/76 95 06/27/17 10:48 06/27/17 10:48 06/27/17 10:48 06/27/17 10:48 06/27/17 10:48 General appearance: Present: mild distress, A&O X 3, pleasant, answers questions appropriately - Respiratory Respiratory exam: Present: CTAB. Absent: accessory muscle use, rales, rhonchi, wheezes - Cardiovascular Cardiovascular exam: Present: RRR, +S1, +S2. Absent: diastolic murmur, gallop, rubs, systolic murmur - Patient Status Disposition: Home, Self-Care - Discharge Instructions Follow Up With: NONE,PCP [Primary Care Provider] -
--- NOTE | 2017-06-27 16:14 | Orthopedics Progress Note ---
Date of Encounter: 06/27/17 Time of Encounter: 13:00 - Assessment and Plan (1) Cellulitis and abscess of right leg Current Visit: Yes Status: Acute . Cultures growing MRSA A: Post incision, drainage, irrigation, and debridement of the right lower extremity Doing well P: Improving clinically CRP down to 13 from 262 on admission Infectious disease continues to follow for ABX recommendations: Zyvox by hospitalist given itching during Vancomycin administration, transitioned to oral ABX - Bactrim DS. Daily dressing changes - ABD, Kerlix and MARQUEZ wrap. Patient requested a discharge for today, he has a tomorrow AM he would like to attend. This was discussed with Dr. Silva, and orthopedic recommendations would be for patient to stay another 24 hours to monitor with the transition to oral ABX. notified. Subjective Principal diagnosis: RLE Cellulitis, s/p I&D - Interval history: S: Resting in bed. Comfortable, A&O x 3 Pain controlled, minimal Ambulating without assistance. WBC 20.9 CRP improving to 13 today. O: 99.2 temp this AM, otherwise VSS Cellulitis resolving. Swelling to RLE minimal. Wounds are evaluated with minimal bloody drainage No purulence Improved motion about the knee Thigh and leg compartments are soft, RLE motion intact - dorsiflex and plantarflex intact to RLE The foot is sensate and well-perfused, pulses intact. Cultures growing MRSA A: Post incision, drainage, irrigation, and debridement of the right lower extremity Doing well P: Improving clinically CRP down to 13 from 262 on admission Infectious diesease continue to follow for ABX recommendations: Zyvox by hospitalist given itching during Vancomycin administration, transitioned to oral ABX - Bactrim DS. Daily dressing changes - ABD, Kerlix and MARQUEZ wrap. ]Patient requested a discharge, he has a tomorrow AM he would like to attend. THis was discussed with , and orthopedic recommendations would be for patient to stay another 24 hours to monitor with the transition to oral ABX. notified. Objective Vital signs: Vital Signs Temp Pulse Resp BP Pulse Ox 06/27/17 10:48 99.2 F 90 15 106/76 95 06/27/17 07:14 98.8 F 108 15 124/79 98 06/27/17 04:50 98.0 F 84 14 124/84 96 06/26/17 23:42 98.2 F 82 14 116/70 96 06/26/17 19:58 98.3 F 77 14 133/83 98 Intake and Output 06/27/17 06/27/17 06/27/17 07:59 15:59 23:59 Intake Total 500 / 500 720 / 720 Output Total 200 / 200 300 / 300 Balance 300 / 300 420 / 420 Intake: Oral 500 / 500 720 / 720 Output: Urine 200 / 200 300 / 300 Other: Meal Lunch Percent of Meal Consumed 100% Weight 77.065 kg Patient Weight 06/27/17 23:59 Weight 77.065 kg Incision: clean and dry - Labs CBC & BMP: 06/27/17 05:08 06/26/17 06:27 Labs: Abnormal lab results WBC 20.9 K/mcL (4.3-11.1) H 06/27/17 05:08 Plt Count 530 K/mcL (140-400) H 06/27/17 05:08 MPV 8.8 fL (9.4-12.4) L 06/27/17 05:08 Immature Gran % 8.7 % (0-4) H 06/27/17 05:08 Neutrophils # 13.6 K/mcL (1.6-8.9) H 06/27/17 05:08 Toxic Granulation Present (Not Present) A 06/27/17 05:08 Platelet Estimate Increased (Normal) H 06/27/17 05:08 Large Platelets Present (Not Present) A 06/27/17 05:08 Anisocytosis 1+ (Not Present) A 06/22/17 00:46 Macrocytosis Present (Not Present) A 06/22/17 00:46 ESR 95 mm/hr (0-10) H 06/27/17 05:08 PT 13.2 Seconds (9.4-12.1) H 06/21/17 18:42 Sodium 134 mEq/L (136-145) L 06/26/17 06:27 Calculated Osmolality 279 (280-300) L 06/26/17 06:27 C-Reactive Protein 13 mg/L (Less than 10) H 06/27/17 05:08 Consult Discharge Plan - Plan Referrals: Jermaine Gates DO [Resident] - 08/08/17 10:30 am (You will receive a new patient packet in the mail. Please fill out and bring with you. You will also need to bring your photo ID, insurance card and any medications you are on. If you need to cancel, please give a 24 hour notice. The office is located in the building across from the hospital, which was the old [facility]. ) Bubba Silva MD [Partnered Physician] - 07/04/17 2:00 pm Prescriptions: HYDROcodone/Acet 5/325 mg [[place] 5-325 mg] 1 tab PO Q6HR PRN 5 Days #20 tablet PRN Reason: Breakthrough Pain Sulfamethoxazole/Trimeth DS [Bactrim Ds] 1 each PO BID #14 tablet
== END 2017-06-27 16:33 | disposition home or self-care (01) | DRG 710 ==
LOC: 3NENU → SUATTDRO 17:55 → 3ANU 06-26 13:36
PROVIDERS: ADMIT Family Medicine; ATTEND Hospitalist